=== PATIENT | female | born 1940 | race Caucasian/White ===

== ENCOUNTER 2017-09-25 03:47 | Inpatient (IN) | payer MEDICARE, MEDICAID, SELFPAY ==
[2017-09-25] VITALS (11 sets, daily range): BP systolic 115–143; BP diastolic 42–71; PULSE 85–115; RESP 16–33; TEMP 36.6–38.3; O2SAT 90–93; BMI 32.1
--- NOTE | 2017-09-25 | DI.US.S_ITS ---
PROCEDURE: US ABDOMEN COMPLETE INDICATIONS: RUQ pain TECHNIQUE: Real-time scanning was performed of the abdominal and retroperitoneal organs, with image documentation. COMPARISON: [facility], CT, PE STUDY (CTA CHEST), 02/27/2017, 14:45. [facility], CR, ABDOMEN ACUTE SERIES, 02/27/2017, 13:27. FINDINGS: Liver: The liver is diffusely echogenic, when compared to the right kidney which does result in difficulty evaluating the liver for subtle liver lesions. No obvious liver lesion is evident. The size of the liver is not well evaluated related to diffuse increased echogenicity of the liver. Gallbladder: The gallbladder is normal in size without gallbladder wall thickening, pericholecystic fluid, or cholelithiasis. Biliary ducts: Intrahepatic bile ducts are non-dilated. Extrahepatic bile duct caliber measures 6 mm. Normal is 6-7 mm or less in diameter, or 10 mm or less post-cholecystectomy. Pancreas: The pancreas is obscured by overlying bowel gas. Spleen: Spleen is normal in size and homogeneous in echotexture. Kidneys: Kidneys are normal in size and echotexture. Right kidney measures 11.7 cm long; left kidney measures 12.5 cm long. No hydronephrosis or nephrolithiasis. No solid masses. Aorta, iliac arteries, and inferior vena cava: Obscured by bowel gas Miscellaneous: No free abdominal fluid. IMPRESSION: 1. Prominent increased echogenicity of the liver is most likely related to hepatic steatosis. 2. No cholelithiasis. Dictated by: David Bills M.D. on 09/25/2017 at 13:27 Approved by: David Bills M.D. on 09/25/2017 at 13:29
--- NOTE | 2017-09-25 03:52 | DI.RAD.S_ITS ---
PROCEDURE: XR CHEST 1V INDICATIONS: COPD TECHNIQUE: One view of the chest was acquired. COMPARISON: [facility], , ABDOMEN ACUTE SERIES, 02/27/2017, 13:27. [facility], , CHEST 1 VIEW, 11/30/2016, 11:17. FINDINGS: Severely suboptimal evaluation due to difficulty with patient positioning Surgical changes and devices: None. Lungs and pleura: No pleural effusions or pneumothorax. Lung volumes are decreased. There are bibasilar patchy ill-defined opacities which appear probably unchanged since 02/27/17 Mediastinum: Mediastinal contours appear normal. Heart size is normal. Bones and chest wall: No suspicious bony lesions. Overlying soft tissues appear unremarkable. IMPRESSION: Low lung volumes with bibasilar atelectasis/scarring. No definite new focal consolidation or interval change since 02/27/17 although if there is persistent clinical concern, recommend repeat PA and lateral chest radiograph when clinically feasible, due to suboptimal evaluation described above. Dictated by: Joni Lozano M.D. on 09/25/2017 at 7:52 Approved by: Joni Lozano M.D. on 09/25/2017 at 7:54
--- NOTE | 2017-09-25 03:57 | ED.NAVMDI ---
HPI - Nausea/Vomiting/Diarrhea General Chief complaint: Nausea/Vomiting/Diarrhea Stated complaint: N/V Time Seen by Provider: 09/25/17 03:51 Source: EMS Mode of arrival: EMS Limitations: altered mental status (Dementia) History of Present Illness HPI Narrative: 76-year-old female brought by EMS from care facility for multiple episodes of nausea and vomiting since 10 o'clock last evening. Patient has dementia and is reported to be at baseline per EMS who received this information per the nursing care facility. No reports of blood in the vomit. Do report yellow bilious vomiting. No other symptoms reported by EMS Related Data Home Medications Medication Instructions Recorded Confirmed ACETAMINOPHEN 650 mg PO Q4HP PRN #0 11/30/16 09/25/17 bisacodyl [Fleet Laxative] 5 mg PO PRN PRN #0 11/30/16 09/25/17 calcium carbonate [Tums] 500 mg PO BIDP PRN #0 11/30/16 09/25/17 cholecalciferol (vitamin D3) 50,000 unit PO QWEEKSA #0 11/30/16 09/25/17 furosemide 20 mg PO QDAY #0 11/30/16 09/25/17 potassium chloride 20 meq PO QDAY #0 11/30/16 09/25/17 ziprasidone HCl [Geodon] 20 mg PO BID #0 11/30/16 09/25/17 ondansetron HCl 4 mg PO Q4HP PRN #0 02/27/17 09/25/17 sertraline 150 mg PO QDAY #0 02/27/17 09/25/17 ketoconazole [Nizoral] 1 applic TOPICAL WEEKLY 09/25/17 09/25/17 nystatin 1,000 g TOPICAL Q4HR 09/25/17 09/25/17 simvastatin 10 mg PO QPM 09/25/17 09/25/17 Previous Rx's Medication Instructions Recorded loratadine [Claritin] 10 mg PO QDAY #90 04/23/12 Allergies Allergy/AdvReac Type Severity Reaction Status Date / Time iodine Allergy Unknown Verified 09/25/17 05:06 Penicillins Allergy Unknown Verified 09/25/17 05:06 shellfish derived Allergy Unknown Verified 09/25/17 05:06 [SHELLFISH DERIVED] sulfamethoxazole Allergy Unknown Verified 09/25/17 05:06 [From Bactrim] trimethoprim [From Bactrim] Allergy Unknown Verified 09/25/17 05:06 Review of Systems Review of Systems unobtainable due to mental condition Exam Initial Vital Signs Initial Vital Signs: Vital Signs Temperature 98.5 F 09/25/17 04:04 Pulse Rate 101 H 09/25/17 04:04 Respiratory Rate 30 H 09/25/17 04:04 Blood Pressure 131/48 H 09/25/17 04:04 Pulse Oximetry 92 09/25/17 04:04 Const General: comfortable Orientation: awake Other: Patient does not follow commands Grinds her teeth which was reported as baseline HENMT Head: normal to inspection, normocephalic and atraumatic Eyes General: appearance normal, both eyes and all related structures Resp Effort & Inspection: no cough and grunting Other: Decreased breath sounds bilaterally Patient has a history of COPD on her records that came from the care facility Not on oxygen at baseline per any reports found Unsure if the decreased breath sounds is secondary to patient's respiratory effort versus aspiration versus COPD Cardio Rate: tachycardic Pulses: radial pulses present GI Inspection: normal to inspection and distended Palpation: soft, No firm and tender (Patient does answer yes when asked if her abdomen hurt with palpation) Skin Lesions: no lesions Rashes: no rashes Neuro Other: Patient does not answer questions Grains teeth that is baseline Did slightly squeeze with her right hand when asked otherwise did not follow commands Extrem Other: No gross deformities Psych Appearance: grossly normal Course Orders Ordered: ED Orders 09/25/17 03:52 XR chest 1V Stat 09/25/17 04:00 Basic Metabolic Panel Stat Complete Blood Count AUTO DIFF Stat Hepatic (Liver) Panel Stat Lipase Stat 09/25/17 04:25 CT kidney ureter bladder (KUB) Stat 09/25/17 04:30 Lactate (Lactic Acid) Stat 09/25/17 04:50 Blood Culture Stat 09/25/17 05:17 Consult to Physician Routine Sodium Chloride (Normal Saline 0.9%) 1,000 mls @ 500 mls/hr IV BOLUS ONE Stop: 09/25/17 05:51 Last Admin: 09/25/17 04:16 Dose: 500 mls/hr Levofloxacin (Levaquin) 750 mg in 150 mls @ 100 mls/hr IV NOW ONE Stop: 09/25/17 06:18 Sodium Chloride (Normal Saline 0.9%) 1,000 mls @ 500 mls/hr IV BOLUS ONE Stop: 09/25/17 06:57 Metronidazole (Flagyl) 500 mg in 100 mls @ 100 mls/hr IV NOW ONE Stop: 09/25/17 06:10 Sodium Chloride (Normal Saline 0.9%) 1,000 mls @ 125 mls/hr IV CONT MAYA Ondansetron HCl 4 mg/ Sodium (Chloride) 102 mls @ 204 mls/hr IV Q6HR PRN PRN Reason: Nausea And Vomiting Discontinued Medications Ondansetron HCl (Zofran) 4 mg IV NOW ONE Stop: 09/25/17 03:52 Last Admin: 09/25/17 04:16 Dose: 4 mg Vital Signs - 8 hr 09/25/17 04:04 09/25/17 04:29 09/25/17 05:10 Temperature 98.5 F Pulse Rate 101 H 103 H 107 H Respiratory Rate 30 H 33 H 30 H Blood Pressure 131/48 H Blood Pressure [Left Arm] 115/67 131/57 H Pulse Oximetry 92 91 92 MDM - Nausea/Vomiting/Diarrhea Medical Records Attestation: I reviewed the patient's medical records. Lab Data Attestation: I reviewed the patient's lab results. Result diagrams: 09/25/17 04:00 09/25/17 04:00 Lab Results 09/25/17 09/25/17 09/25/17 Range/Units 04:00 04:00 04:00 WBC 16.4 H (4.5-11.0) X10^3/uL RBC 5.97 H (4.0-5.2) X10^6/uL Hgb 16.6 H (12.0-16.0) g/dL Hct 50.0 H (36-46) % MCV 83.7 (80-100) fL MCH 27.8 (26-34) PG MCHC 33.2 (30-36) % RDW 14.3 (11.6-14.8) % Plt Count 235 (150-400) X10^3/uL Neut % (Auto) 93.8 H (50-75) % Lymph % (Auto) 4.2 L (25-40) % [place] % (Auto) 1.8 L (3-14) % Eos % (Auto) 0.1 L (2-4) % Baso % (Auto) 0.1 (0-2) % Neut # (Auto) 40433 H (3237-2548) /uL Sodium 143 (137-145) mmol/L Potassium 4.2 (3.4-5.1) mmol/L Chloride 99 (98-107) mmol/L Carbon Dioxide 24 (22-32) mmol/L BUN 13 (7-17) mg/dL Creatinine 0.70 (0.52-1.04) mg/dL Estimated GFR > 60.0 (>60) mL/min BUN/Creatinine Ratio 18.6 (6-22) Glucose 181 H (80-110) mg/dL Lactate (0.7-2.1) mmol/L Calcium 9.6 (8.4-10.2) mg/dL Total Bilirubin 0.9 (0.2-1.3) mg/dL Conjugated Bilirubin 0.0 (0.0-0.3) md/dL Unconjugated Bilirubin 0.5 (0.0-1.1) mg/dL AST 60 H (14-36) IU/L ALT 67 H (9-52) IU/L Alkaline Phosphatase 98 (38-126) U/L Total Protein 7.2 (6.3-8.2) g/dL Albumin 4.7 (3.5-5.0) g/dL Globulin 2.5 (1.7-4.1) g/dL Albumin/Globulin Ratio 1.9 (1.0-2.8) Lipase 97 (23-300) U/L 09/25/17 Range/Units 04:30 WBC (4.5-11.0) X10^3/uL RBC (4.0-5.2) X10^6/uL Hgb (12.0-16.0) g/dL Hct (36-46) % MCV (80-100) fL MCH (26-34) PG MCHC (30-36) % RDW (11.6-14.8) % Plt Count (150-400) X10^3/uL Neut % (Auto) (50-75) % Lymph % (Auto) (25-40) % [place] % (Auto) (3-14) % Eos % (Auto) (2-4) % Baso % (Auto) (0-2) % Neut # (Auto) (6254-8546) /uL Sodium (137-145) mmol/L Potassium (3.4-5.1) mmol/L Chloride (98-107) mmol/L Carbon Dioxide (22-32) mmol/L BUN (7-17) mg/dL Creatinine (0.52-1.04) mg/dL Estimated GFR (>60) mL/min BUN/Creatinine Ratio (6-22) Glucose (80-110) mg/dL Lactate 5.2 H (0.7-2.1) mmol/L Calcium (8.4-10.2) mg/dL Total Bilirubin (0.2-1.3) mg/dL Conjugated Bilirubin (0.0-0.3) md/dL Unconjugated Bilirubin (0.0-1.1) mg/dL AST (14-36) IU/L ALT (9-52) IU/L Alkaline Phosphatase (38-126) U/L Total Protein (6.3-8.2) g/dL Albumin (3.5-5.0) g/dL Globulin (1.7-4.1) g/dL Albumin/Globulin Ratio (1.0-2.8) Lipase (23-300) U/L Imaging Data Chest x-ray: Attestation: I personally reviewed and interpreted this imaging study as follows: My impression: Poor quality film secondary to lack of inspiratory status No focal consolidations however the is a poor quality film MDM Narrative Medical decision making narrative: Patient arrived at baseline mental status per EMS report which the received from the care facility. From all the information that we have received the patient is a full code. The care facility states that they do not have an advanced directive on file. Patient unable to provide history. Has not vomited since arrival to the emergency department. Does have an elevated white blood cell count with a left shift. Also has an elevated lactate. H&H is also high which is suspicious for dehydration. Was given 2 500 cc fluid boluses here in the emergency department and then started on normal saline IV. This was done secondary to her respiratory status. She does have a history of COPD. Was hypoxic to the low 90s and did drop to the mid 80s on room air. Was placed on nasal cannula which keeps her oxygen saturation greater than 90. Patient does have a slightly distended abdomen however it is soft. She does state that it was tender when you touch did. Patient was allergic to iodine so we were unable to give IV contrast. Patient also had nausea and vomiting which makes oral contrast administration unlikely to be successful. Did order a CT scan without contrast however when patient was placed flat on the CT scan table she became gasping for air and according nursing staff turned blue. She was sat up in these symptoms resolved. I do have some concern secondary to her elevated lactate and the nausea vomiting and her reports of abdominal pain of a potential intra abdominal source of her symptoms. I also have high concern secondary to her respiratory status and the vomiting that she has also aspirated. She is allergic to penicillin so Levaquin and Flagyl were ordered in the emergency department. Blood cultures were obtained. Held on obtaining any urine studies because of the high suspicion of either an intra-abdominal or respiratory source for her sepsis. I did discuss the case with Dr. Geiger the accepts patient for admission. Discharge Plan Departure Patient Disposition: Admitted As Inpatient Clinical Impression: Aspiration pneumonia, Nausea & vomiting, Sepsis, COPD (chronic obstructive pulmonary disease), Hypoxia
[2017-09-25 04:16] LABS: Add Manual Diff / Slide Review NO; BUN Creatinine Ratio 18.6 (6-22); Basophils Percent Auto 0.1 % (0-2); Blood Urea Nitrogen 13 mg/dL (7-17); Calcium 9.6 mg/dL (8.4-10.2); Carbon Dioxide 24 mmol/L (22-32); Chloride 99 mmol/L (98-107); Eosinophils Percent Auto 0.1 % (2-4); Estimated Glomerular Filt Rate > 60.0 mL/min (>60); Glucose 181 mg/dL (80-110); HEMOLYSIS < 15 (0-50); Hemoglobin 16.6 g/dL (12.0-16.0); Lymphocytes Percent Auto 4.2 % (25-40); Mean Corpuscular HGB Conc 33.2 % (30-36); Mean Corpuscular Hemoglobin 27.8 PG (26-34); Mean Corpuscular Volume 83.7 fL (80-100); Monocytes Percent Auto 1.8 % (3-14); Neutrophils Absolute Auto 15400 /uL (3000-5900); Neutrophils Percent Auto 93.8 % (50-75); Platelet Count 235 X10^3/uL (150-400); Potassium 4.2 mmol/L (3.4-5.1); Red Blood Cell Count 5.97 X10^6/uL (4.0-5.2); Red Cell Distribution Width 14.3 % (11.6-14.8); Sodium 143 mmol/L (137-145); White Blood Cell Count 16.4 X10^3/uL (4.5-11.0)
[2017-09-25] MEDS: ONDANSETRON 4 MG/2 ML INJ IV (04:16)
[2017-09-25] MEDS: SODIUM CHLORIDE 0.9% 1,000 ML 500 ML IV ×2 (04:16→07:32)
[2017-09-25 04:29] LABS: Alanine Aminotransferase 67 IU/L (9-52); Albumin 4.7 g/dL (3.5-5.0); Albumin Globulin Ratio 1.9 (1.0-2.8); Alkaline Phosphatase 98 U/L (38-126); Aspartate Aminotransferase 60 IU/L (14-36); Bilirubin Total 0.9 mg/dL (0.2-1.3); Bilirubin Unconjugated 0.5 mg/dL (0.0-1.1); Globulin 2.5 g/dL (1.7-4.1); HEMOLYSIS 20 (0-50); Lipase 97 U/L (23-300); Total Protein 7.2 g/dL (6.3-8.2)
--- NOTE | 2017-09-25 04:30 | PC.NURSE ---
Applied 2L O2 via NC for decrease in O2 saturation. Pt desaturated to 79%, 2L applied and pt saturations increased to 89-91%. Dr. Lazaro hebert.
[2017-09-25 04:48] LABS: Lactate (Lactic Acid) 5.2 mmol/L (0.7-2.1)
--- NOTE | 2017-09-25 04:52 | PC.NURSE ---
Pt transported to for CXR and CT scan. XR completed. When pt was transferred to CT table, pt began guppy breathing or heaving. Became distressed and cyanotic-- did not tolerate lying flat. Pt transferred back to [facility] and placed in high fowlers position where she recovered to baseline. Dr Willis notified of above.
[2017-09-25] MEDS: levoFLOXacin 750 MG/150 ML PIGGYBACK 100 MG IV (05:23)
[2017-09-25 08:36] LABS: Reflexed Lactate in 2 Hours Y
[2017-09-25] MEDS: metroNIDAZOLE 500 MG/100 ML PIGGYBACK 100 MG IV (09:10)
[2017-09-25 09:34] LABS: Lactate 2HR (Lactic Acid Rflx) 3.3 mmol/L (0.7-2.1)
[2017-09-25] MEDS: SODIUM CHLORIDE 0.9% 1,000 ML 125 ML IV ×2 (10:15→19:08)
--- NOTE | 2017-09-25 11:48 | PM.HP.1 ---
History of Present Illness Date Patient Seen: 09/25/17 Time Patient Seen: 11:15 Chief complaint: Aspiration Pneumonia/ Nausea, Vomiting/ Sepsis Narrative: 76-year-old female with dementia who was brought from care home facility to [facility] Emergency room yesterday for hypoxia after nausea and vomiting. Patient is a poor historian and is unable to provide much history. Based on the ER documentation, she had multiple episodes of nausea and vomiting since 10 o'clock the evening prior. She was found to be hypoxic required 2 L nasal cannula oxygen. She received symptomatic control with nausea vomiting. She has not had any recurrent vomiting since hospital admission. There was documentation of abdominal pain on the ER note. Patient denies ongoing abdominal pain. Patient History Medical History Anxiety (Acute) COPD (chronic obstructive pulmonary disease) (Acute) Chronic bronchitis (Acute) Dysphagia (Acute) Hyperlipemia (Acute) Hypertension (Acute) Major depressive disorder, single episode (Acute) Morbid obesity due to excess calories (Acute) Osteoarthritis (Acute) Other abnormalities of gait and mobility (Acute) Paranoid schizophrenia (Acute) Family & Social History Family History: Reviewed 09/25/17 by Subha Norwood MD Social History: household members none Prior Living Arrangements Assisted Living Safety & Behavioral: Suicidal Ideation Description None Suicide Plan Description No Plan Meds Home Medications Medication Instructions Recorded Confirmed Type loratadine [Claritin] 10 mg PO QDAY #90 04/23/12 09/25/17 Rx acetaminophen [Tylenol] 650 mg PO Q4H PRN #0 11/30/16 09/25/17 History bisacodyl [Fleet Laxative] 5 mg PO PRN PRN #0 11/30/16 09/25/17 History calcium carbonate [Tums] 500 mg PO BIDP PRN #0 11/30/16 09/25/17 History cholecalciferol (vitamin D3) 50,000 unit PO QWEEKSA #0 11/30/16 09/25/17 History furosemide 20 mg PO QDAY #0 11/30/16 09/25/17 History potassium chloride 20 meq PO QDAY #0 11/30/16 09/25/17 History ziprasidone HCl [Geodon] 20 mg PO BID #0 11/30/16 09/25/17 History ondansetron HCl 4 mg PO Q4HP PRN #0 02/27/17 09/25/17 History sertraline 150 mg PO QDAY #0 02/27/17 09/25/17 History Artificial Tears (PF) 1 drp OPHTHALMIC (EYE) TID 09/25/17 09/25/17 History ketoconazole [Nizoral] 1 applic TOPICAL WEEKLY 09/25/17 09/25/17 History nystatin 1,000 g TOPICAL Q4HR 09/25/17 09/25/17 History simvastatin 10 mg PO QPM 09/25/17 09/25/17 History Allergies Allergy/AdvReac Type Severity Reaction Status Date / Time hydrocodone Allergy Unknown Verified 09/25/17 07:49 iodine Allergy Unknown Verified 09/25/17 05:06 Penicillins Allergy Unknown Verified 09/25/17 05:06 shellfish derived Allergy Unknown Verified 09/25/17 05:06 [SHELLFISH DERIVED] sulfamethoxazole Allergy Unknown Verified 09/25/17 05:06 [From Bactrim] trimethoprim [From Bactrim] Allergy Unknown Verified 09/25/17 05:06 Review of Systems Review of Systems Complete review of system is unable to obtain due to patient's severe dementia. Exam Vital Signs (past 8 hours): Vital Signs - 8 hr 09/25/17 04:04 09/25/17 04:29 09/25/17 05:10 Temperature 98.5 F Pulse Rate 101 H 103 H 107 H Respiratory Rate 30 H 33 H 30 H Blood Pressure 131/48 H Blood Pressure [Left Arm] 115/67 131/57 H Pulse Oximetry 92 91 92 09/25/17 05:33 09/25/17 05:50 09/25/17 06:41 Temperature 100.9 F H 99.6 F Pulse Rate 115 H 113 H 92 H Respiratory Rate 25 H 27 H 21 Blood Pressure 128/71 H 133/66 H Blood Pressure [Left Arm] 128/71 H Pulse Oximetry 90 L 90 L 92 09/25/17 07:20 Temperature 99.5 F Pulse Rate 88 Respiratory Rate 17 Blood Pressure 116/42 L Blood Pressure [Left Arm] Pulse Oximetry 93 Pulse Oximetry 93 Oxygen Delivery Method Nasal Cannula Oxygen Flow Rate 2 Narrative Exam Narrative: GENERAL: Elderly woman in no acute distress. HEENT: Head normocephalic, atraumatic. Eyes pupils equal round NECK: Supple, no JVD, CHEST: Breath sounds equal bilaterally, no wheezes rales or rhonchi. CARDIAC: Regular rate and rhythm without murmurs, rubs or gallops. ABDOMEN: Soft, mildly distended, mild right upper quadrant and epigastric tenderness, no guarding or rebound. EXTREMITIES: no clubbing or edema, mild atrophy and bilateral leg muscles. NEUROLOGICAL: Alert and oriented to self only; she does move her extremities. SKIN: Warm, dry, no petechiae, no rashes or lesions. Objective Imaging Chest x-ray: Radiologist's impression: Labs Result Diagrams: 09/25/17 04:00 09/25/17 04:00 Labs: Laboratory Results - last 24 hr 09/25/17 09/25/17 09/25/17 04:00 04:00 04:00 WBC 16.4 H RBC 5.97 H Hgb 16.6 H Hct 50.0 H MCV 83.7 MCH 27.8 MCHC 33.2 RDW 14.3 Plt Count 235 Neut % (Auto) 93.8 H Lymph % (Auto) 4.2 L [place] % (Auto) 1.8 L Eos % (Auto) 0.1 L Baso % (Auto) 0.1 Neut # (Auto) 73202 H Sodium 143 Potassium 4.2 Chloride 99 Carbon Dioxide 24 BUN 13 Creatinine 0.70 Estimated GFR > 60.0 BUN/Creatinine Ratio 18.6 Glucose 181 H Lactate Calcium 9.6 Total Bilirubin 0.9 Conjugated Bilirubin 0.0 Unconjugated Bilirubin 0.5 AST 60 H ALT 67 H Alkaline Phosphatase 98 Total Protein 7.2 Albumin 4.7 Globulin 2.5 Albumin/Globulin Ratio 1.9 Lipase 97 Nasal Screen MRSA (PCR) 09/25/17 09/25/17 09/25/17 04:30 08:51 09:05 WBC RBC Hgb Hct MCV MCH MCHC RDW Plt Count Neut % (Auto) Lymph % (Auto) [place] % (Auto) Eos % (Auto) Baso % (Auto) Neut # (Auto) Sodium Potassium Chloride Carbon Dioxide BUN Creatinine Estimated GFR BUN/Creatinine Ratio Glucose Lactate 5.2 H 3.3 H Calcium Total Bilirubin Conjugated Bilirubin Unconjugated Bilirubin AST ALT Alkaline Phosphatase Total Protein Albumin Globulin Albumin/Globulin Ratio Lipase Nasal Screen MRSA (PCR) Negative for mrsa Assessment & Plan Plan: Assessment/Plan Narrative: 1. Nausea and vomiting: Etiology is unclear. She has not had any recurring nausea vomiting since hospital admission. Continue Zofran as needed. Patient does have right upper quadrant tenderness on physical exam. We will do right upper quadrant ultrasound to evaluate for possible cholelithiasis or cholecystitis. 2. Possible aspiration pneumonia: She was noted to be hypoxic and required 2 L of nasal cannula oxygen. Continue nasal cannula oxygen. Continue IV Levaquin for treating possible aspiration pneumonia 3. Acute hypoxic respiratory failure: Possibly secondary to possible aspiration pneumonia. 4. Dysphagia: She was on dysphagia diet prior to hospital admission. We will have speech evaluate for her swallowing. Likely restart dysphagia diet later today. 5. Severe dementia: Patient is close to her baseline mental status. Quality VTE Deep Vein Thrombosis/Pulmonary Embolism Present on Admission: No
--- NOTE | 2017-09-25 12:00 | P.HP_ITS ---
History of Present Illness Date Patient Seen: 09/25/17 Time Patient Seen: 11:15 Chief complaint: Aspiration Pneumonia/ Nausea, Vomiting/ Sepsis Narrative: 76-year-old female with dementia who was brought from assisted facility to [facility] Emergency room yesterday for hypoxia after nausea and vomiting. Patient is a poor historian and is unable to provide much history. Based on the ER documentation, she had multiple episodes of nausea and vomiting since 10 o'clock the evening prior. She was found to be hypoxic required 2 L nasal cannula oxygen. She received symptomatic control with nausea vomiting. She has not had any recurrent vomiting since hospital admission. There was documentation of abdominal pain on the ER note. Patient denies ongoing abdominal pain. Patient History Medical History Anxiety (Acute) COPD (chronic obstructive pulmonary disease) (Acute) Chronic bronchitis (Acute) Dysphagia (Acute) Hyperlipemia (Acute) Hypertension (Acute) Major depressive disorder, single episode (Acute) Morbid obesity due to excess calories (Acute) Osteoarthritis (Acute) Other abnormalities of gait and mobility (Acute) Paranoid schizophrenia (Acute) Family & Social History Family History: Reviewed 09/25/17 by Subha Norwood MD Social History: household members none Prior Living Arrangements Assisted Living Safety & Behavioral: Suicidal Ideation Description None Suicide Plan Description No Plan Meds Home Medications Medication Instructions Recorded Confirmed Type loratadine [Claritin] 10 mg PO QDAY #90 04/23/12 09/25/17 Rx acetaminophen [Tylenol] 650 mg PO Q4H PRN #0 11/30/16 09/25/17 History bisacodyl [Fleet Laxative] 5 mg PO PRN PRN #0 11/30/16 09/25/17 History calcium carbonate [Tums] 500 mg PO BIDP PRN #0 11/30/16 09/25/17 History cholecalciferol (vitamin D3) 50,000 unit PO QWEEKSA #0 11/30/16 09/25/17 History furosemide 20 mg PO QDAY #0 11/30/16 09/25/17 History potassium chloride 20 meq PO QDAY #0 11/30/16 09/25/17 History ziprasidone HCl [Geodon] 20 mg PO BID #0 11/30/16 09/25/17 History ondansetron HCl 4 mg PO Q4HP PRN #0 02/27/17 09/25/17 History sertraline 150 mg PO QDAY #0 02/27/17 09/25/17 History Artificial Tears (PF) 1 drp OPHTHALMIC (EYE) TID 09/25/17 09/25/17 History ketoconazole [Nizoral] 1 applic TOPICAL WEEKLY 09/25/17 09/25/17 History nystatin 1,000 g TOPICAL Q4HR 09/25/17 09/25/17 History simvastatin 10 mg PO QPM 09/25/17 09/25/17 History Allergies Allergy/AdvReac Type Severity Reaction Status Date / Time hydrocodone Allergy Unknown Verified 09/25/17 07:49 iodine Allergy Unknown Verified 09/25/17 05:06 Penicillins Allergy Unknown Verified 09/25/17 05:06 shellfish derived Allergy Unknown Verified 09/25/17 05:06 [SHELLFISH DERIVED] sulfamethoxazole Allergy Unknown Verified 09/25/17 05:06 [From Bactrim] trimethoprim [From Bactrim] Allergy Unknown Verified 09/25/17 05:06 Review of Systems Review of Systems Complete review of system is unable to obtain due to patient's severe dementia. Exam Vital Signs (past 8 hours): Vital Signs - 8 hr 3 09/25/17 04:04 09/25/17 04:29 09/25/17 05:10 Temperature 98.5 F Pulse Rate 101 H 103 H 107 H Respiratory Rate 30 H 33 H 30 H Blood Pressure 131/48 H Blood Pressure [Left Arm] 115/67 131/57 H Pulse Oximetry 92 91 92 3 09/25/17 05:33 09/25/17 05:50 09/25/17 06:41 Temperature 100.9 F H 99.6 F Pulse Rate 115 H 113 H 92 H Respiratory Rate 25 H 27 H 21 Blood Pressure 128/71 H 133/66 H Blood Pressure [Left Arm] 128/71 H Pulse Oximetry 90 L 90 L 92 3 09/25/17 07:20 Temperature 99.5 F Pulse Rate 88 Respiratory Rate 17 Blood Pressure 116/42 L Blood Pressure [Left Arm] Pulse Oximetry 93 Pulse Oximetry 93 Oxygen Delivery Method Nasal Cannula Oxygen Flow Rate 2 Narrative Exam Narrative: GENERAL: Elderly woman in no acute distress. HEENT: Head normocephalic, atraumatic. Eyes pupils equal round NECK: Supple, no JVD, CHEST: Breath sounds equal bilaterally, no wheezes rales or rhonchi. CARDIAC: Regular rate and rhythm without murmurs, rubs or gallops. ABDOMEN: Soft, mildly distended, mild right upper quadrant and epigastric tenderness, no guarding or rebound. EXTREMITIES: no clubbing or edema, mild atrophy and bilateral leg muscles. NEUROLOGICAL: Alert and oriented to self only; she does move her extremities. SKIN: Warm, dry, no petechiae, no rashes or lesions. Objective Imaging Chest x-ray: Radiologist's impression: Labs Result Diagrams: 09/25/17 04:00 09/25/17 04:00 Labs: Laboratory Results - last 24 hr 09/25/17 09/25/17 09/25/17 04:00 04:00 04:00 WBC 16.4 H RBC 5.97 H Hgb 16.6 H Hct 50.0 H MCV 83.7 MCH 27.8 MCHC 33.2 RDW 14.3 Plt Count 235 Neut % (Auto) 93.8 H Lymph % (Auto) 4.2 L [place] % (Auto) 1.8 L Eos % (Auto) 0.1 L Baso % (Auto) 0.1 Neut # (Auto) 55493 H Sodium 143 Potassium 4.2 Chloride 99 Carbon Dioxide 24 BUN 13 Creatinine 0.70 Estimated GFR > 60.0 BUN/Creatinine Ratio 18.6 Glucose 181 H Lactate Calcium 9.6 Total Bilirubin 0.9 Conjugated Bilirubin 0.0 Unconjugated Bilirubin 0.5 AST 60 H ALT 67 H Alkaline Phosphatase 98 Total Protein 7.2 Albumin 4.7 Globulin 2.5 Albumin/Globulin Ratio 1.9 Lipase 97 Nasal Screen MRSA (PCR) 09/25/17 09/25/17 09/25/17 04:30 08:51 09:05 WBC RBC Hgb Hct MCV MCH MCHC RDW Plt Count Neut % (Auto) Lymph % (Auto) [place] % (Auto) Eos % (Auto) Baso % (Auto) Neut # (Auto) Sodium Potassium Chloride Carbon Dioxide BUN Creatinine Estimated GFR BUN/Creatinine Ratio Glucose Lactate 5.2 H 3.3 H Calcium Total Bilirubin Conjugated Bilirubin Unconjugated Bilirubin AST ALT Alkaline Phosphatase Total Protein Albumin Globulin Albumin/Globulin Ratio Lipase Nasal Screen MRSA (PCR) Negative for mrsa Assessment & Plan Plan: Assessment/Plan Narrative: 1. Nausea and vomiting: Etiology is unclear. She has not had any recurring nausea vomiting since hospital admission. Continue Zofran as needed. Patient does have right upper quadrant tenderness on physical exam. We will do right upper quadrant ultrasound to evaluate for possible cholelithiasis or cholecystitis. 2. Possible aspiration pneumonia: She was noted to be hypoxic and required 2 L of nasal cannula oxygen. Continue nasal cannula oxygen. Continue IV Levaquin for treating possible aspiration pneumonia 3. Acute hypoxic respiratory failure: Possibly secondary to possible aspiration pneumonia. 4. Dysphagia: She was on dysphagia diet prior to hospital admission. We will have speech evaluate for her swallowing. Likely restart dysphagia diet later today. 5. Severe dementia: Patient is close to her baseline mental status. Quality VTE Deep Vein Thrombosis/Pulmonary Embolism Present on Admission: No
--- NOTE | 2017-09-25 13:37 | CM.DANOTE ---
DCP/Assessment: Reviewed chart. Patient is a 76yr old female admitted to [facility] with [facility]. PCP is Dr. Baker. Primary payor is 1)Medicare 2)Medicaid. Pt. is a current resident at [facility]. Assigned state guardian is Colleen Tamez ph# [phone]. Spoke briefly with RN/Joni today re: status. CUSTOMER ACCOUNT COORDINATOR met with patient and asked her if she was from [facility]. Patient difficult to understand but reports yes. RN asking about patient's advanced directives and code status? Instructed nrsg to call [facility] and or guardian. If RN unable to obtain, contact CM team. Anticipate that patient will return to [facility] when medically stable. Unable to call today due to staffing. Contact at [facility] is Garrett ph# [phone]. In addition, guardian/Colleen Tamez should be notified prior to patient's discharge. CUSTOMER ACCOUNT COORDINATOR will pass on to oncoming CM staff. P: [facility] when stable. DEBRA Quinn
[2017-09-25] MEDS: NYSTATIN POWDER 15GM 1 APPLIC TOP ×3 (14:06→21:44)
[2017-09-25] MEDS: POLYVINYL ALCOHOL DROPS 1 DROPS EYE-BOTH ×2 (14:06→21:44)
--- NOTE | 2017-09-25 16:37 | ST.IPIE ---
Visit Care Team Role Provider Type Mary Baker MD Family Provider Physician Primary Care Provider Specialty: Medical Address: [address], [address] Email: Dalton Willis DO Emergency Provider Physician Specialty: Emergency Medicine Address: [address] [place] [address], [address] Email: Marques Geiger MD Admit Provider Physician Attending Provider Other Providers Specialty: Internal Medicine Address: [address] [place] [address], [id number] Email: Past Medical History (Last Reviewed 09/25/17 @ 11:51 by Subha Norwood MD) Anxiety (Acute Medical) COPD (chronic obstructive pulmonary disease) (Acute Medical) Chronic bronchitis (Acute Medical) Dysphagia (Acute Medical) Hyperlipemia (Acute Medical) Hypertension (Acute Medical) Major depressive disorder, single episode (Acute Medical) Morbid obesity due to excess calories (Acute Medical) Osteoarthritis (Acute Medical) Other abnormalities of gait and mobility (Acute Medical) Paranoid schizophrenia (Acute Medical) ST IP Initial Evaulation Report TEACHER DANCING Clinical Swallow Evaluation Start: 09/25/17 15:57 Freq: Status: Active Protocol: Document 09/25/17 15:58 CARL (Rec: 09/25/17 16:36 CARL [id number]) Clinical Swallow Evaluation Session Time Visit Start Time 14:00 Visit Stop Time 14:30 Total Visit Minutes 30 Visit Information Visit Number [address] Geiger Reason for Referral Aspiration of emesis; baseline of modified diet/liquids Setting Assessment Location Acute Care Visit Type Note Type Initial Evaluation Next Note Type Next Note Type Treatment Note Patient Information Identification Type Name History 76-year-old female with dementia who was brought from [facility] to [facility] Emergency room yesterday for hypoxia after nausea and vomiting and abdominal pain. Possible aspiration pneumonia from emesis. Pt was noted to be hypoxic and requiring 2 L of nasal cannula oxygen. IV Levaquin treating possible aspiration pneumonia. Chest X-ray Impression : Low lung volumes with bibasilar atelectasis/scarring . No definite new focal consolidation or interval change since 02/27/17 although if there is persistent clinical concern, recommend repeat PA and lateral chest radiograph when clinically feasible, due to suboptimal evaluation described above. The pt's baseline diet at [facility] is pureed texture, honey- thick liquid, meds crushed in carrier, 1:1 feeding assistance and supervision d/t severe dementia. Subjective Observations The pt was seen immediately following abdominal ultrasound . She was lying in bed with eyes closed and mouth open with tongue in constant motion around her mouth. She aroused to verbal stimuli and greeted this TEACHER DANCING upon introduction. She was agreeable to P.O. trials and able to follow a few basic oral motor instructions with demonstration. She did not communicate beyond yes/no and ok. Evaluation Liquids Trialed Mars Honey Solids Trialed Puree Administration Type Tea Spoon Dependent Feeding Oral Impairment Severely Impaired Oral Strategies Upright at 90 degrees Controlled Bite/Sip Size Dementia Strategies Oral Phase Comments Pt is edentulous. Lingual ROM is WFL. Strength and coordination of tongue, lips and cheeks is reduced. When offered trials, the pt consistently opened her mouth for acceptance but required intermittent verbal cues to close lips around the spoon. The pt constantly moves her tongue from side to side in her oral cavity, reducing ability to form and control a bolus. Boluses were observed to exit the oral cavity posteriorly prior to initiation of swallow (3-5 sec ), significantly increasing her risk of aspiration. Minimal anterior oral spillage of liquids observed, managed primarily by the pt licking her lips. No oral residue was observed with solids or liquids. Pharyngeal Impairment Severely Impaired Pharyngeal Phase Strategies Sitting Upright (90 deg) Chin Tuck Small Bites and Sips Pharyngeal Phase Comments No overt s/sx of aspiration were observed with all trials. Hyolaryngeal elevation and excursion is reduced. Pharyngeal swallow of NTL was audible, indicating reduced coordination and increased risk of aspiration. Swallow appeared better coordinated with HTL. To reduce posterior spillage from oral cavity and increase airway protection, chin tuck swallow was attempted. The pt appeared familiar with the task and upon verbal prompt lowered her chin minimally, indicating possible stimulability to training of this strategy. Findings Rehabilitation Potential Fair Impressions The pt presents with moderate- severe oropharyngeal dysphagia secondary to dementia and reduced strength and coordination of swallow musculature. She was able to follow a few simple one-step instructions including attempted chin tuck with swallow, which may allow her to decrease her risk of aspiration. Diet Recommendations Liquids Order Honey Diet Order Dysphagia Blenderized Medication Recommendations Crushed Additional Dietary Needs Controlled Sips No Straws 1:1 Supervision 1:1 Assistance Reminders to Use Strategies Aspiration Precautions Recommended Precautions Upright at 90 Degrees Small Bites/Sips Chin Tuck Check for Pocketing Liquids from Spoon Treatment Plan Placement Recommendations after [facility] Discharge Appropriate for Therapy Yes Therapy Recommendations Ongoing assessment of swallow safety and diet tolerance; training of pt/caregivers in use of chin tuck to reduce premature posterior oral spillage and protect the airway. Dysphagia Goals Pt will tolerate least restrictive diet to meet her nutrition and hydration needs. Pt will follow safe swallow strategies with verbal cuing as needed to reduce risk of aspiration.
[2017-09-25] MEDS: SIMVASTATIN 10 MG TABLET PO (17:17)
--- NOTE | 2017-09-25 22:25 | PC.NURSE ---
Patient minimal verbal responses, able to answer simple questions. Reported tardive dyskenesia- moving arms, and chewing movments. Denies pain except does cry out when repositioned. Needed to be fed dysphagia pureed dinner. Incontinent of stool and urine. Remains on O2 2;l/m pm- sats 93-95.
[2017-09-26] VITALS (8 sets, daily range): BP systolic 102–151; BP diastolic 44–66; PULSE 79–85; RESP 16–24; TEMP 36.5–37.2; O2SAT 80–97; BMI 32.1
[2017-09-26] MEDS: NYSTATIN POWDER 15GM 1 APPLIC TOP ×6 (01:00→21:19)
[2017-09-26] MEDS: ACETAMINOPHEN 325 MG TABLET 650 MG PO ×2 (01:16→17:15)
[2017-09-26] MEDS: SODIUM CHLORIDE 0.9% 1,000 ML 125 ML IV (03:30)
[2017-09-26 05:12] LABS: Alanine Aminotransferase 55 IU/L (9-52); Alkaline Phosphatase 56 U/L (38-126); Aspartate Aminotransferase 38 IU/L (14-36); BUN Creatinine Ratio 25.7 (6-22); Bilirubin Total 0.8 mg/dL (0.2-1.3); Blood Urea Nitrogen 18 mg/dL (7-17); Calcium 8.3 mg/dL (8.4-10.2); Carbon Dioxide 27 mmol/L (22-32); Chloride 107 mmol/L (98-107); Estimated Glomerular Filt Rate > 60.0 mL/min (>60); Glucose 146 mg/dL (80-110); HEMOLYSIS < 15 (0-50); Lipase 14 U/L (23-300); Potassium 3.7 mmol/L (3.4-5.1); Sodium 145 mmol/L (137-145)
[2017-09-26 05:13] LABS: Hematocrit 39.5 % (36-46); Mean Corpuscular Hemoglobin 27.7 PG (26-34); Mean Corpuscular Volume 83.9 fL (80-100); Platelet Count 189 X10^3/uL (150-400); Red Blood Cell Count 4.71 X10^6/uL (4.0-5.2); Red Cell Distribution Width 14.4 % (11.6-14.8); White Blood Cell Count 21.7 X10^3/uL (4.5-11.0)
[2017-09-26 05:14] LABS: Add Manual Diff / Slide Review YES
[2017-09-26] MEDS: levoFLOXacin 750 MG/150 ML PIGGYBACK 100 MG IV (06:01)
[2017-09-26 06:40] LABS: Anisocytosis 1+
[2017-09-26] MEDS: ONDANSETRON 4 MG/2 ML INJ IV (08:07)
--- NOTE | 2017-09-26 08:42 | CM.DPC ---
Addendum entered by DEBRA Arnold 09/26/17 12:06: ADD: Per MD, pt not stable for d/c yet today but making progress and still on Oxygen. Per RN, likely will do a room air test on pt tomorrow to determine if she will need oxygen at d/c. KATJA called pt's legal guardian Colleen Tamez ([phone]) and updated her on pt status and possible need for Oxygen at d/c and [facility] review of the pt and acceptance back. Colleen Tamez stated that she just completed a new POLST form for pt's DNR at [facility] and MD to sign today at [facility]. SW provided the pt's Medicare Rights to pt's guardian and she acknowledged understanding and gave verbal signature on Medicare Message. Guardian's preference is return to [facility] at d/c. KATJA called Alexa at [facility] and updated on pt status and possible need for oxygen at d/c pending room air trial tomorrow. Alexa requested orders for oxygen faxed krystian if pt will need Oxygen so that she can get it set up with [facility] [place]. Plan: SW to follow closely for likely pt return to [facility] and determine if pt will need oxygen at d/c pending trial tomorrow towards letting [facility] know krystian so that they can get it set up with [facility] [place]. SW to keep Guardian Colleen Tamez updated on pt discharge. DEBRA Arnold Original Note: DCP Cont: KATJA called Alexa at [facility] and confirmed that the pt is a resident at their facility and Alexa requested clinicals to review towards possible return at d/c. KATHYA Montiel kindly faxed requested clinicals to review to Alexa at [facility]. Plan: KATJA to follow closely for [place] review of pt's clinicals towards possible return at d/c and ongoing coordination with [facility] and pt's guardian Colleen Tamez on d/c planning closer to discharge. DEBRA Arnold
[2017-09-26] MEDS: SERTRALINE 50 MG TABLET 150 MG PO (09:13)
[2017-09-26] MEDS: POLYVINYL ALCOHOL DROPS 1 DROPS EYE-BOTH ×3 (09:13→21:18)
[2017-09-26] MEDS: LORATADINE 10 MG TABLET PO (09:14)
--- NOTE | 2017-09-26 10:00 | PM.PN.1 ---
Subjective Date Patient Seen: 09/26/17 Time Patient Seen: 09:15 Interval history: Patient no longer has nausea or vomiting. She is currently sitting in the chair having her breakfast. Exam Vital Signs (past 8 hours): Vital Signs - 8 hr 09/26/17 05:05 09/26/17 05:49 09/26/17 07:34 Temperature 98.2 F 98.3 F Pulse Rate 80 84 Respiratory Rate 24 19 Blood Pressure 112/57 L 121/63 H Pulse Oximetry 80 L 96 94 Pulse Oximetry 94 Fraction of Inspired Oxygen 28 Oxygen Delivery Method Nasal Cannula Oxygen Flow Rate 2 Narrative Exam Narrative: General: Obese elderly woman in no acute distress Lungs: Fine crackles at the right lower lung field, otherwise clear to auscultation, no wheezing appreciated Heart:Regular rate and rhythm without murmurs, rubs or gallops. ABDOMEN: Soft, mildly distended, nontender, no guarding or rebound. EXTREMITIES: no clubbing or edema, mild atrophy and bilateral leg muscles. NEUROLOGICAL: Alert and oriented to self only; she does move her extremities. SKIN: Warm, dry, no petechiae, no rashes or lesions. Objective Labs Result Diagrams: 09/26/17 04:50 09/26/17 04:50 Labs: Laboratory Results - last 24 hr 09/25/17 09/26/17 09/26/17 08:51 04:50 04:50 WBC 21.7 H RBC 4.71 Hgb 13.0 Hct 39.5 MCV 83.9 MCH 27.7 MCHC 33.0 RDW 14.4 Plt Count 189 Neut % (Auto) Not Reportable Lymph % (Auto) Not Reportable [place] % (Auto) Not Reportable Eos % (Auto) Not Reportable Baso % (Auto) Not Reportable Seg Neutrophils % 82.0 H Band Neutrophils % 9.0 H Lymphocytes % (Manual) 6.0 L Monocytes % (Manual) 2.0 Myelocytes % 1.0 H RBC Morphology Not Reportable Anisocytosis 1+ H Sodium 145 Potassium 3.7 Chloride 107 Carbon Dioxide 27 BUN 18 H Creatinine 0.70 Estimated GFR > 60.0 BUN/Creatinine Ratio 25.7 H Glucose 146 H Calcium 8.3 L Total Bilirubin 0.8 AST 38 H ALT 55 H Alkaline Phosphatase 56 Lipase 14 L D Nasal Screen MRSA (PCR) Negative for mrsa Assessment & Plan Plan: Assessment/Plan Narrative: 1. Nausea and vomiting: Etiology is unclear. She has not had any recurring nausea vomiting since hospital admission. Continue Zofran as needed. Right upper quadrant ultrasound did not reveal signs of cholelithiasis or cholecystitis. 2. Aspiration pneumonia: She was noted to be hypoxic and required 2 L of nasal cannula oxygen. Continue nasal cannula oxygen. Continue IV Levaquin for treating possible aspiration pneumonia 3. Acute hypoxic respiratory failure: Possibly secondary to possible aspiration pneumonia. We will treat underlying cause 4. Dysphagia: She is followed by speech pathologist. She is currently on dysphagia diet with pureed solid and nectar thick liquid 5. Severe dementia: Patient is close to her baseline mental status. 6. Disposition: Discharge back to correction facility when she is medically more stable. Quality VTE Deep Vein Thrombosis/Pulmonary Embolism Present on Admission: No
[2017-09-26] MEDS: ZIPRASIDONE 20 MG 1 EACH PO ×2 (12:21→21:19)
--- NOTE | 2017-09-26 13:33 | DIET.PN ---
Additional consult received for pt today. Pt was assessed following initial consult request (received yesterday). Today's consult was for aspiration risk, but OCEAN FORWARDER evaluated this pt yesterday and her recommendations (dysphagia pureed / HTL) are recorded in pt's EMR and diet order, and are being followed. No further aspiration-related interventions indicated from dietitians at this time. Minimal data for pt's intake so far; however, we will monitor and supplement appropriately if intake begins to decrease below estimated needs. Debra Kidd, college intern Gemma Liz RDN
--- NOTE | 2017-09-26 16:46 | ST.IPTN ---
TUBE ROOM CASHIER Treatment Note TUBE ROOM CASHIER Treatment Note Start: 09/25/17 15:57 Freq: Status: Active Protocol: Document 09/26/17 16:35 CARL (Rec: 09/26/17 16:43 CARL [id number]) Speech Pathology Treatment Note Session Time Visit Start Time 09:40 Visit Stop Time 10:05 Total Visit Minutes 25 Setting Treatment Setting Acute Care Visit Type Note Type Treatment Note Next Note Type Next Note Type Treatment Note Subjective Observations/Patient Presentation Pt was sitting up in chair. She had finished eating breakfast but was agreeable to a few more bites/sips. Per QUEBRACHO TANNER, pt exhibited no overt s/ sx of aspiration with breakfast, required verbal and tactile cues for chin tuck. Chief Complaint(s) Swallowing Objective Short Term Goals Pt will tolerate least restrictive diet to meet her nutrition and hydration needs. Pt will use safe swallow strategies with cuing as necessary. Treatment Activities P.O. trials of puree texture, HTL. Assessment and pt training of safe swallow strategies including chin tuck and looking at each bolus presentation prior to intake. Pt did not respond to chin tuck prompts. She did look at each bolus when instructed to. Assessment Patient Response to Treatment Good Rehab Potential Fair Assessment of Improvement No overt s/sx of aspiration with trials of puree texture and HTL from spoon. Attempted cup sip but pt had difficulty wrapping lips around cup. Continue liquids by tsp. The pt was not responsive to verbal or tactile prompts for chin tuck with this TUBE ROOM CASHIER. However, she was in bolt upright position, which assisted in reducing premature posterior spillage. Pt continues with dyskinetic lingual movements impacting her ability to prepare and control boluses. Good oral clearance. Pt appears to be at baseline with swallow function. Plan Comment F/u x1. Anticipate dc from ST services in 1-2 visits. Visit Care Team Role Provider Type Mary Baker MD Family Provider Physician Primary Care Provider Address: [address], [address] Dalton Willis DO Emergency Provider Physician Address: [address] [place] [address], [address] Marques Geiger MD Admit Provider Physician Attending Provider Other Providers Address: [address] [place] [address], [address] Please Sign and Return: I have reviewed this Plan of Care and certify that the skilled therapy services above are required to meet the patient?s needs. Physician Signature Date Printed Name and Credentials Clinical Instructor Signature Printed Name and Credentials
[2017-09-26] MEDS: SIMVASTATIN 10 MG TABLET PO (17:16)
[2017-09-26] MEDS: SODIUM CHLORIDE 0.9% FLUSH 10 ML IV (21:20)
[2017-09-27] VITALS (7 sets, daily range): BP systolic 96–115; BP diastolic 44–63; PULSE 76–81; RESP 18–23; TEMP 36.3–36.9; O2SAT 93–96
[2017-09-27] MEDS: SODIUM CHLORIDE 0.9% FLUSH 10 ML IV ×4 (02:22→21:00)
[2017-09-27] MEDS: ONDANSETRON 4 MG/2 ML INJ IV (02:22)
[2017-09-27] MEDS: levoFLOXacin 750 MG/150 ML PIGGYBACK 100 MG IV (05:51)
[2017-09-27] MEDS: NYSTATIN POWDER 15GM 1 APPLIC TOP ×5 (05:51→20:59)
[2017-09-27] MEDS: ZIPRASIDONE 20 MG 1 EACH PO ×2 (09:59→20:58)
[2017-09-27] MEDS: SERTRALINE 50 MG TABLET 150 MG PO (09:59)
[2017-09-27] MEDS: LORATADINE 10 MG TABLET PO (10:00)
[2017-09-27] MEDS: POLYVINYL ALCOHOL DROPS 1 DROPS EYE-BOTH ×3 (10:00→20:58)
--- NOTE | 2017-09-27 10:21 | P.PN_ITS ---
Subjective Date Patient Seen: 09/27/17 Time Patient Seen: 09:30 Interval history: Patient is clinically stable. She still requires nasal cannula oxygen. Exam Vital Signs (past 8 hours): Vital Signs - 8 hr 3 09/27/17 04:57 09/27/17 07:48 Temperature 98.3 F 98 F Pulse Rate 76 76 Respiratory Rate 20 22 Blood Pressure 113/63 96/61 Pulse Oximetry 96 94 Pulse Oximetry 94 Fraction of Inspired Oxygen 28 Oxygen Delivery Method Nasal Cannula Oxygen Flow Rate 2 Narrative Exam Narrative: General: Obese elderly woman in no acute distress Lungs: Fine crackles at bilateral lower lung roman, otherwise clear to auscultation, no wheezing appreciated Heart:Regular rate and rhythm without murmurs, rubs or gallops. ABDOMEN: Soft, mildly distended, nontender, no guarding or rebound. EXTREMITIES: no clubbing or edema, mild atrophy and bilateral leg muscles. NEUROLOGICAL: Alert and oriented to self only; she does move her extremities. SKIN: Warm, dry, no petechiae, no rashes or lesions. Objective Labs Result Diagrams: 09/26/17 04:50 09/26/17 04:50 Assessment & Plan Plan: Assessment/Plan Narrative: 1. Nausea and vomiting: Possible viral gastroenteritis. Her nausea vomiting have resolved. She has not had any recurring nausea vomiting since hospital admission. Continue Zofran as needed. Right upper quadrant ultrasound did not reveal signs of cholelithiasis or cholecystitis. 2. Aspiration pneumonia: She was noted to be hypoxic and required 2 L of nasal cannula oxygen. Continue nasal cannula oxygen. Continue IV Levaquin for treating possible aspiration pneumonia 3. Acute hypoxic respiratory failure: Possibly secondary to possible aspiration pneumonia. We will treat underlying cause 4. Acute pulmonary edema: She was found to have crackles on bilateral lower lung roman. She was on oral furosemide prior to hospital admission. We will give her 1 time dose of IV furosemide 20 mg today. Restart oral furosemide per outpatient dosing. Restart potassium supplement as well. Recheck her labs in the morning. 5. Dysphagia: She is followed by speech pathologist. She is currently on dysphagia diet with pureed solid and nectar thick liquid 5. Severe dementia: Patient is close to her baseline mental status. 6. Disposition: Discharge back to [facility] possibly tomorrow Quality VTE Deep Vein Thrombosis/Pulmonary Embolism Present on Admission: No
[2017-09-27] MEDS: FUROSEMIDE 20 MG TABLET PO (10:31)
[2017-09-27] MEDS: FUROSEMIDE 20 MG/2 ML VIAL IV (10:31)
[2017-09-27] MEDS: POTASSIUM CHLORIDE 20 MEQ TAB PO (10:31)
--- NOTE | 2017-09-27 14:52 | ST.IPTN ---
DIRECTOR SHIP Treatment Note DIRECTOR SHIP Treatment Note Start: 09/25/17 15:57 Freq: Status: Active Protocol: Document 09/27/17 14:38 [facility] (Rec: 09/27/17 14:52 [facility] [id number]) Speech Pathology Treatment Note Session Time Visit Start Time 09:15 Visit Stop Time 09:30 Total Visit Minutes 15 Visit Information Visit Number 2 Setting Treatment Setting Acute Care Visit Type Note Type Treatment Note Next Note Type Next Note Type Treatment Note Subjective Observations/Patient Presentation Pt was seen immediately after being transferred to chair. Pt maintained closed eyes throughout the session with exception of looking at each bolus presentation on command. She responded to the DIRECTOR SHIP's greeting and answered some yes /no questions; was otherwise not verbal. Chief Complaint(s) Swallowing Objective Short Term Goals Pt will tolerate least restrictive diet to meet her nutrition and hydration needs. Pt will use safe swallow strategies with cuing as necessary. Treatment Activities Pt tolerated puree texture and HTL with no overt s/sx of aspiration. She followed verbal and tactile prompts to tuck chin with minimal downward movement x2 over course of trials. Pt continues with poor oral control of bolus secondary to constant lingual movement. Continues with early spillage to pharynx requiring mandatory bolt upright position to reduce risk of aspiration. The pt was provided 1:1 feeding assistance and required occasional verbal prompts to close lips around spoon for intake. Assessment Patient Response to Treatment Good Rehab Potential Fair Assessment of Improvement Pt tolerating puree diet, HTL with no overt s/sx of aspiration. Remains at risk of aspiration secondary to dementia, poor oral motor control resulting in early spillage of bolus to pharynx, and delayed swallow trigger. Pt requires 1:1 feeding assistance and verbal/tactile prompts occasionally for oral acceptance and consistently for use of chin tuck and visualization of bolus presentation. Pt appears to be at her baseline swallow function. Plan Therapeutic Contents Swallowing/Feeding Provided Patient/Caregiver Instruction Plan of Care Questions/Concerns Comment Consultation w/ Nsg & MAKING LINE WORKER Visit Care Team Role Provider Type Mary Baker MD Family Provider Physician Primary Care Provider Address: [address], [address] Dalton Willis DO Emergency Provider Physician Address: [address] [place] [address], [id number] Marques Geiger MD Admit Provider Physician Attending Provider Other Providers Address: [address] [place] [address], [place], [id number] Please Sign and Return: I have reviewed this Plan of Care and certify that the skilled therapy services above are required to meet the patient?s needs. Physician Signature Date Printed Name and Credentials Clinical Instructor Signature Printed Name and Credentials
--- NOTE | 2017-09-27 15:50 | PC.NURSE ---
1530- Pt discharged to home with his . Pt will have home health visiting at home. Pt is alert oriented and cooperative with care. Discharge instruction given to patient and . IV helplock removed. Pt verbalizes understanding of discharge plan. Stable at the time of discharge.
[2017-09-27] MEDS: SIMVASTATIN 10 MG TABLET PO (17:34)
--- NOTE | 2017-09-27 21:41 | PC.NURSE ---
2106- Pt had a significant bradycardic event with a 5 second pause. She then had some escape beats and returned to normal sinus rhythm. Pt did not have complete lose of vital signs and responded to a vigorous sternal rub. Pt unable to convey if she had chest pain or if she felt anything prior to the event. Pt was taking her 9pm pills at the time. Event reported to Dr. Norwood no orders rec. Pt is full code.
[2017-09-28] VITALS (8 sets, daily range): BP systolic 114–142; BP diastolic 39–73; PULSE 61–79; RESP 16–26; TEMP 36.4–37.3; O2SAT 93–96
[2017-09-28] MEDS: NYSTATIN POWDER 15GM 1 APPLIC TOP ×6 (01:10→20:25)
[2017-09-28 05:48] LABS: Add Manual Diff / Slide Review NO; Basophils Percent Auto 0.1 % (0-2); Eosinophils Percent Auto 0.1 % (2-4); Hematocrit 37.7 % (36-46); Hemoglobin 12.5 g/dL (12.0-16.0); Lymphocytes Percent Auto 6.3 % (25-40); Mean Corpuscular HGB Conc 33.2 % (30-36); Mean Corpuscular Hemoglobin 27.2 PG (26-34); Mean Corpuscular Volume 82.1 fL (80-100); Monocytes Percent Auto 7.3 % (3-14); Neutrophils Absolute Auto 11500 /uL (3000-5900); Neutrophils Percent Auto 86.2 % (50-75); Platelet Count 189 X10^3/uL (150-400); Red Blood Cell Count 4.59 X10^6/uL (4.0-5.2); Red Cell Distribution Width 15.1 % (11.6-14.8); White Blood Cell Count 13.4 X10^3/uL (4.5-11.0)
[2017-09-28 05:57] LABS: Blood Urea Nitrogen 24 mg/dL (7-17); Carbon Dioxide 32 mmol/L (22-32); Chloride 104 mmol/L (98-107); Estimated Glomerular Filt Rate > 60.0 mL/min (>60); Glucose 151 mg/dL (80-110); HEMOLYSIS < 15 (0-50); Potassium 3.4 mmol/L (3.4-5.1); Sodium 147 mmol/L (137-145)
[2017-09-28] MEDS: levoFLOXacin 750 MG/150 ML PIGGYBACK 100 MG IV (06:35)
[2017-09-28] MEDS: SODIUM CHLORIDE 0.9% 250 ML 21 ML IV (06:36)
[2017-09-28] MEDS: SODIUM CHLORIDE 0.9% FLUSH 10 ML IV ×2 (06:36→20:26)
[2017-09-28] MEDS: FUROSEMIDE 20 MG TABLET PO (10:05)
[2017-09-28] MEDS: LORATADINE 10 MG TABLET PO (10:05)
[2017-09-28] MEDS: ZIPRASIDONE 20 MG 1 EACH PO (10:06)
[2017-09-28] MEDS: POLYVINYL ALCOHOL DROPS 1 DROPS EYE-BOTH ×3 (10:06→20:26)
[2017-09-28] MEDS: POTASSIUM CHLORIDE 20 MEQ TAB PO (10:06)
[2017-09-28] MEDS: SERTRALINE 50 MG TABLET 150 MG PO (10:06)
[2017-09-28 10:47] LABS: Acinetobacter baumannii Not Detected (Not Detect); Enterococcus species Not Detected (Not Detect); Listeria monocytogenes Not Detected (Not Detect); Staphylococcus species Not Detected (Not Detect); Streptococcus agalactiae (Gr B Not Detected (Not Detect); Streptococcus pneumonia Not Detected (Not Detect); Streptococcus pyogenes (Gr A) Not Detected (Not Detect); Streptococcus species Not Detected (Not Detect)
[2017-09-28 10:48] LABS: Candida albicans Not Detected (Not Detect); Candida glabrata Not Detected (Not Detect); Candida krusei Not Detected (Not Detect); Candida parapsilosis Not Detected (Not Detect); Candida tropicalis Not Detected (Not Detect); E. coli Detected (Not Detect); Enterobacter cloacae complex Not Detected (Not Detect); Enterobacteriaceae species Detected (Not Detect); Haemophilus influenzae Not Detected (Not Detect); KPC (carbapenem-resist gene) Not Detected (Not Detect); Neisseria meningitidis Not Detected (Not Detect); Proteus species Not Detected (Not Detect); Pseudomonas aeruginosa Not Detected (Not Detect); Serratia marcescens Not Detected (Not Detect)
--- NOTE | 2017-09-28 11:48 | P.PN_ITS ---
Subjective Date Patient Seen: 09/28/17 Time Patient Seen: 08:30 Interval history: The patient reports feeling ongoing weakness. Blood cultures returned positive for E coli this morning. She had a 5 sec pause on telemetry over night, otherwise remaining in sinus rhythm. There was some question if this may have been a vagal reaction. Exam Vital Signs (past 8 hours): Vital Signs - 8 hr 3 09/28/17 04:25 Temperature 98.3 F Pulse Rate 69 Respiratory Rate 19 Blood Pressure 142/64 H Pulse Oximetry 95 Pulse Oximetry 95 Fraction of Inspired Oxygen 32 Oxygen Delivery Method Nasal Cannula Oxygen Flow Rate 2 Narrative Exam Narrative: General: Pleasant, obese female, appears fatigued though answers questions appropriately HEENT: Pupils equal round reactive, mucous membranes pink and dry Neck: Supple Lungs: Basilar crackles, otherwise clear Cardiac: Regular rate and rhythm without appreciable murmur Abdomen: Soft, obese, mildly distended, nontender Extremities: Without edema, mild atrophy of bilateral leg muscles Neurologic: Alert, oriented to person and place, moves all 4 extremities though globally weak Dermatologic: No rash or skin lesions Objective Labs Result Diagrams: 09/28/17 05:00 09/28/17 05:00 Labs: Laboratory Results - last 24 hr 09/25/17 09/28/17 09/28/17 05:15 05:00 05:00 WBC 13.4 H RBC 4.59 Hgb 12.5 Hct 37.7 MCV 82.1 MCH 27.2 MCHC 33.2 RDW 15.1 H Plt Count 189 Neut % (Auto) 86.2 H Lymph % (Auto) 6.3 L [place] % (Auto) 7.3 Eos % (Auto) 0.1 L Baso % (Auto) 0.1 Neut # (Auto) 74371 H Sodium 147 H Potassium 3.4 Chloride 104 Carbon Dioxide 32 BUN 24 H Creatinine 0.80 Estimated GFR > 60.0 BUN/Creatinine Ratio 30.0 H Glucose 151 H Calcium 9.0 A. baumannii (PCR) Not detected Deidre albicans (PCR) Not detected C. glabrata (PCR) Not detected C. krusei (PCR) Not detected C. parapsilosis (PCR) Not detected C. tropicalis (PCR) Not detected Enterobacteriac sp PCR Detected H E. cloacae complex PCR Not detected Enterococcus sp PCR Not detected E. coli (PCR) Detected H H. influenzae (PCR) Not detected Klebsiella oxytoca PCR Not detected Klebsiella pneumoniae Not detected List. monocytogenes PCR Not detected N. meningitidis (PCR) Not detected Proteus species (PCR) Not detected Serratia marcescens PCR Not detected Staphylococcus sp PCR Not detected Staph aureus (PCR) Not detected mecA-Methicil Res Gene Not Reportable Streptococcus sp PCR Not detected Group A Strep (PCR) Not detected Strep agalactiae (PCR) Not detected Strep pneumoniae (PCR) Not detected P. aeruginosa (PCR) Not detected Nayeli/B-Vanco Res Genes Not Reportable KPC-Carbap Res Gene PCR Not detected Assessment & Plan Plan: Assessment/Plan Narrative: 1. Nausea and vomiting: Possible viral gastroenteritis versus an E coli septicemia. Check urinalysis. Continue Levaquin and follow cultures.. Her nausea vomiting have resolved. She has not had any recurring nausea vomiting since hospital admission. Continue Zofran as needed. Right upper quadrant ultrasound did not reveal signs of cholelithiasis or cholecystitis. 2. E coli septicemia. Positive blood culture noted for E coli, likely pathogenic. Continue Levaquin and follow clinically. Monitor cultures and sensitivities. 3. Aspiration pneumonia: She was noted to be hypoxic and required 2 L of nasal cannula oxygen. Continue nasal cannula oxygen. Continue IV Levaquin for treating possible aspiration pneumonia 4. Acute hypoxic respiratory failure: Improved. Possibly secondary to possible aspiration pneumonia. We will treat underlying cause. 5. Acute pulmonary edema: She was found to have crackles on bilateral lower lung roman. She was on oral furosemide prior to hospital admission. She received a 1 time dose of IV furosemide 20 mg on 09/27/2017 and was restarted on oral furosemide per outpatient dosing with potassium supplement as well. Recheck her labs in the morning. 6. Dysphagia: She is followed by speech pathologist. She is currently on dysphagia diet with pureed solid and nectar thick liquid. 7. Severe dementia: Patient is diminished in her mental status E, likely due to infection. 8. Metabolic encephalopathy, likely due to infection. Continue to monitor. 9. Disposition: Discharge back to [facility] when medically stable. Quality VTE Deep Vein Thrombosis/Pulmonary Embolism Present on Admission: No
--- NOTE | 2017-09-28 12:30 | ST.IPTN ---
ROLL CLEANER Treatment Note ROLL CLEANER Treatment Note Start: 09/25/17 15:57 Freq: Status: Active Protocol: Document 09/28/17 12:30 [facility] (Rec: 09/28/17 14:06 [facility] [id number]) Speech Pathology Treatment Note Session Time Visit Start Time 12:30 Visit Stop Time 12:35 Setting Treatment Setting Acute Care Visit Type Note Type Patient Unavailable Subjective Observations/Patient Presentation Patient somnolent with two RNs present to transfer her via roxanne lift out of bed and into chair. The transfer did not rouse the patient, and she remained mostly somnolent in chair, unable to demonstrate adequate level of alertness for tolerance of meal (lunch). ROLL CLEANER did not initiate treatment due to RN's request to delay and patient's inability to rouse. ROLL CLEANER will follow up tomorrow. No billable charge.
--- NOTE | 2017-09-28 15:14 | CM.DPC ---
DCP Cont: Received call/VM today from Alexa at [facility]; a nurse had done bedside assessment this morning and as of today, pt is far from baseline. Pt does not meet LONG TERM criteria as stable and predictable today. At baseline, per Alexa, pt independently self propels her w/c and can transfer w/one person assist. Pt mostly alert and talkative. Alexa # [phone]. This [employer] will need to f/u Monday and also speak w/Guardian BRUNA Salmeron indicated in CM rounds this morning that pt may need SNF for 1:1 feeding...will review eval tomorrow re current recommendations. DEBRA Verdugo
[2017-09-28 16:17] LABS: Appearance Urine UA CLEAR; Bilirubin Urine UA NEGATIVE (NEGATIVE); Color Urine UA YELLOW; Glucose Urine UA NEGATIVE (Normal); Ketones Urine UA NEGATIVE (NEGATIVE); Leukocyte Esterase Urine UA NEGATIVE (NEGATIVE); Nitrite Urine UA POSITIVE (Negative); Occult Blood Urine UA 2+ (Negative); Protein Urine UA TRACE (Negative); Urobilinogen Urine UA 0.2 E.U./dL (0.2)
[2017-09-28 16:27] LABS: Bacteria Urine Many (>30)
[2017-09-28 16:28] LABS: Culture Indicated Urine Specimen Cultured; RBC Urine 1-5/HPF (0-5/HPF); Squamous Epithelial Cell Urine 1-5 /HPF; WBC Urine 1-5/HPF (0-5/HPF)
--- NOTE | 2017-09-28 18:55 | PC.NURSE ---
Addendum entered by Aliza Real R.N. 09/28/17 20:41: Pt awake. Able to responded to questions and follow cues. Snack provided. Reinforced swallow precautions. Pt denies pain. Bed alarm on. Original Note: Pt more awake. Oriented to self. States that she lives in a snf. Reoriented to place and situation. Able to move all extremities when requested. Generalized weakness. Brief change and reposition. Bed alarm on.
[2017-09-29 00:14] VITALS: BP 113/55; PULSE 60; RESP 30; TEMP 36.4; O2SAT 95
[2017-09-29] MEDS: NYSTATIN POWDER 15GM 1 APPLIC TOP ×5 (05:03→21:18)
[2017-09-29 05:15] VITALS: BP 150/73; PULSE 64; RESP 15; TEMP 36.8; O2SAT 95
[2017-09-29 05:49] LABS: Add Manual Diff / Slide Review NO; Basophils Percent Auto 0.2 % (0-2); Eosinophils Percent Auto 0.2 % (2-4); Hematocrit 38.5 % (36-46); Hemoglobin 12.7 g/dL (12.0-16.0); Lymphocytes Percent Auto 6.1 % (25-40); Mean Corpuscular Hemoglobin 27.3 PG (26-34); Mean Corpuscular Volume 82.9 fL (80-100); Monocytes Percent Auto 7.1 % (3-14); Neutrophils Absolute Auto 11600 /uL (3000-5900); Neutrophils Percent Auto 86.4 % (50-75); Platelet Count 179 X10^3/uL (150-400); Red Blood Cell Count 4.64 X10^6/uL (4.0-5.2); Red Cell Distribution Width 14.7 % (11.6-14.8); White Blood Cell Count 13.4 X10^3/uL (4.5-11.0)
[2017-09-29 06:01] LABS: BUN Creatinine Ratio 37.1 (6-22); Blood Urea Nitrogen 26 mg/dL (7-17); Calcium 9.2 mg/dL (8.4-10.2); Carbon Dioxide 32 mmol/L (22-32); Chloride 106 mmol/L (98-107); Estimated Glomerular Filt Rate > 60.0 mL/min (>60); Glucose 176 mg/dL (80-110); HEMOLYSIS 16 (0-50); Potassium 3.4 mmol/L (3.4-5.1); Sodium 147 mmol/L (137-145)
[2017-09-29] MEDS: levoFLOXacin 750 MG/150 ML PIGGYBACK 100 MG IV (06:31)
[2017-09-29 08:06] VITALS: BP 160/65; PULSE 60; RESP 20; TEMP 36.6; O2SAT 96
[2017-09-29] MEDS: SERTRALINE 50 MG TABLET 150 MG PO (08:48)
[2017-09-29] MEDS: ZIPRASIDONE 20 MG 1 EACH PO ×2 (08:48→16:53)
[2017-09-29] MEDS: SODIUM CHLORIDE 0.9% FLUSH 10 ML IV ×2 (08:49→21:18)
[2017-09-29] MEDS: FUROSEMIDE 20 MG TABLET PO (08:49)
[2017-09-29] MEDS: POTASSIUM CHLORIDE 20 MEQ TAB PO (08:49)
[2017-09-29] MEDS: POLYVINYL ALCOHOL DROPS 1 DROPS EYE-BOTH ×3 (08:49→21:18)
[2017-09-29] MEDS: LORATADINE 10 MG TABLET PO (08:49)
--- NOTE | 2017-09-29 10:05 | ST.IPTN ---
EPIC PRELUDE ANALYST Treatment Note EPIC PRELUDE ANALYST Treatment Note Start: 09/25/17 15:57 Freq: Status: Active Protocol: Document 09/29/17 09:36 [facility] (Rec: 09/29/17 10:04 [facility] [id number]) Speech Pathology Treatment Note Session Time Visit Start Time 09:00 Visit Stop Time 09:30 Total Visit Minutes 30 Visit Information Visit Number 3 Setting Treatment Setting Acute Care Visit Type Note Type Treatment Note Subjective Observations/Patient Presentation Patient seen sitting in bed following AM meal. Nursing staff administered patient's AM meal with 1:1 assist, max cues to remain alert and extended time. Chief Complaint(s) Swallowing Objective Short Term Goals Given min cues, patient will self-feed current diet of honey thick liquids, puree textures and implement safe swallow strategies such as small bites/sips and slow rate in order to increase functional independence. Treatment Activities Oral trials were limited due to patient's inability to remain alert without cues. Trials consisted of honey thick liquid via teaspoon and puree textures via teaspoon. Given patient's tardive dyskinesia and decreased alertness, her bolus acceptance was significantly impaired. She required cues for labial seal around the spoon with all trials. Oral containment improved and anterior spillage decreased as trials progressed. Given patient's weight and positioning in bed, palpation of the swallow was not feasible. No overt s/sx of aspiration were present during trials, however, patient's voice was noted to be weak. Assessment Patient Response to Treatment Fair Rehab Potential Fair Impairments Identified Dysphagia Additional Impairments Identified Decreased attention, alertness Assessment of Improvement Per EPIC PRELUDE ANALYST at patient's [facility], patient self-feeds honey thick liquids and puree textures at baseline. She appears to be tolerating her current diet with out overt s/sx of aspiration; however, she is not able to self-feed at this time and requires 1:1 assistance due to decreased alertness. She is not appropriate for an MBS at this time due to decreased alertness and inconsistency with following directions as well as poor positioning and inability to maintain upright posture. Plan Therapeutic Contents Swallowing/Feeding Comment Discussed w/ nursing Comment Continue w/ dysphagia therapy
[2017-09-29 11:12] VITALS: PULSE 79; RESP 21; O2SAT 93
[2017-09-29 11:30] VITALS: O2SAT 89; O2SAT 93
--- NOTE | 2017-09-29 12:20 | PM.PN.1 ---
Subjective Date Patient Seen: 09/29/17 Time Patient Seen: 12:00 Interval history: The patient reports feeling ongoing weakness and is very somnolent. Blood cultures returned positive for E coli this morning. She had a 5 sec pause on telemetry 2 nights ago but otherwise remaining in sinus rhythm. There was some question if this may have been a vagal reaction. Exam Vital Signs (past 8 hours): Vital Signs - 8 hr 09/29/17 05:15 09/29/17 08:06 09/29/17 11:12 Temperature 98.3 F 97.8 F Pulse Rate 64 60 79 Respiratory Rate 15 20 21 Blood Pressure 150/73 H 160/65 H Pulse Oximetry 95 96 93 Pulse Oximetry 93 Fraction of Inspired Oxygen 32 Oxygen Delivery Method Nasal Cannula Oxygen Flow Rate 2 Narrative Exam Narrative: General: Obese elderly woman in no acute distress Lungs: Fine crackles at bilateral lower lung roman, otherwise clear to auscultation, no wheezing appreciated Heart:Regular rate and rhythm without murmurs, rubs or gallops. ABDOMEN: Soft, mildly distended, nontender, no guarding or rebound. EXTREMITIES: no clubbing or edema, mild atrophy and bilateral leg muscles. NEUROLOGICAL: Alert and oriented to self only; she does move her extremities. SKIN: Warm, dry, no petechiae, no rashes or lesions. Objective Labs Result Diagrams: 09/29/17 05:02 09/29/17 05:02 Labs: Laboratory Results - last 24 hr 09/28/17 09/29/17 09/29/17 14:30 05:02 05:02 WBC 13.4 H RBC 4.64 Hgb 12.7 Hct 38.5 MCV 82.9 MCH 27.3 MCHC 33.0 RDW 14.7 Plt Count 179 Neut % (Auto) 86.4 H Lymph % (Auto) 6.1 L [place] % (Auto) 7.1 Eos % (Auto) 0.2 L Baso % (Auto) 0.2 Neut # (Auto) 65596 H Sodium 147 H Potassium 3.4 Chloride 106 Carbon Dioxide 32 BUN 26 H Creatinine 0.70 Estimated GFR > 60.0 BUN/Creatinine Ratio 37.1 H Glucose 176 H Calcium 9.2 Urine Color Yellow Urine Appearance Clear Urine pH 5.0 Ur Specific [place] 1.020 Urine Protein Trace H Urine Glucose (UA) Negative Urine Ketones Negative Urine Occult Blood 2+ H Urine Nitrate Positive H Urine Bilirubin Negative Urine Urobilinogen 0.2 Ur Leukocyte Esterase Negative Urine RBC 1-5/hpf Urine WBC 1-5/hpf Ur Squamous Epith Cells 1-5 /hpf Urine Bacteria Many (>30) H Ur Culture Indicated? Specimen cultured Micro UA Comment Not Reportable Assessment & Plan Plan: Assessment/Plan Narrative: 1. Nausea and vomiting, resolved: Probably due to E coli septicemia from urinary source, with abnormal urinalysis with pyuria. Continue Levaquin and follow cultures.. Her nausea vomiting have resolved. She has not had any recurring nausea vomiting since hospital admission. Continue Zofran as needed. Right upper quadrant ultrasound did not reveal signs of cholelithiasis or cholecystitis. 2. E coli septicemia due to UTI. Positive blood culture noted for E coli, likely pathogenic. Continue Levaquin and follow clinically. Monitor cultures and sensitivities. 3. Aspiration pneumonia: She was noted to be hypoxic and required 2 L of nasal cannula oxygen. Continue nasal cannula oxygen. Continue IV Levaquin for treating possible aspiration pneumonia. 4. Acute hypoxic respiratory failure: Improved. Possibly secondary to possible aspiration pneumonia. We will treat underlying cause. 5. Acute pulmonary edema: She was found to have crackles on bilateral lower lung roman. She was on oral furosemide prior to hospital admission. She received a 1 time dose of IV furosemide 20 mg on 09/27/2017 and was restarted on oral furosemide per outpatient dosing with potassium supplement as well. Recheck her labs in the morning. 6. Dysphagia: She is followed by speech pathologist. She is currently on dysphagia diet with pureed solid and nectar thick liquid. 7. Severe dementia: Patient is diminished in her mental status E, likely due to infection. 8. Metabolic encephalopathy, likely due to infection. Continue to monitor. 9. Weakness due to septicemia. PT consulted. 10. Disposition: Discharge back to [facility] when medically stable. 11. Code status: Obtain POLST from [facility] to clarify. Quality VTE Deep Vein Thrombosis/Pulmonary Embolism Present on Admission: No
--- NOTE | 2017-09-29 12:23 | P.PN_ITS ---
Subjective Date Patient Seen: 09/29/17 Time Patient Seen: 12:00 Interval history: The patient reports feeling ongoing weakness and is very somnolent. Blood cultures returned positive for E coli this morning. She had a 5 sec pause on telemetry 2 nights ago but otherwise remaining in sinus rhythm. There was some question if this may have been a vagal reaction. Exam Vital Signs (past 8 hours): Vital Signs - 8 hr 3 09/29/17 05:15 09/29/17 08:06 09/29/17 11:12 Temperature 98.3 F 97.8 F Pulse Rate 64 60 79 Respiratory Rate 15 20 21 Blood Pressure 150/73 H 160/65 H Pulse Oximetry 95 96 93 Pulse Oximetry 93 Fraction of Inspired Oxygen 32 Oxygen Delivery Method Nasal Cannula Oxygen Flow Rate 2 Narrative Exam Narrative: General: Obese elderly woman in no acute distress Lungs: Fine crackles at bilateral lower lung roman, otherwise clear to auscultation, no wheezing appreciated Heart:Regular rate and rhythm without murmurs, rubs or gallops. ABDOMEN: Soft, mildly distended, nontender, no guarding or rebound. EXTREMITIES: no clubbing or edema, mild atrophy and bilateral leg muscles. NEUROLOGICAL: Alert and oriented to self only; she does move her extremities. SKIN: Warm, dry, no petechiae, no rashes or lesions. Objective Labs Result Diagrams: 09/29/17 05:02 09/29/17 05:02 Labs: Laboratory Results - last 24 hr 09/28/17 09/29/17 09/29/17 14:30 05:02 05:02 WBC 13.4 H RBC 4.64 Hgb 12.7 Hct 38.5 MCV 82.9 MCH 27.3 MCHC 33.0 RDW 14.7 Plt Count 179 Neut % (Auto) 86.4 H Lymph % (Auto) 6.[address] [place] % (Auto) 7.1 Eos % (Auto) 0.2 L Baso % (Auto) 0.2 Neut # (Auto) 41162 H Sodium 147 H Potassium 3.4 Chloride 106 Carbon Dioxide 32 BUN 26 H Creatinine 0.70 Estimated GFR > 60.0 BUN/Creatinine Ratio 37.1 H Glucose 176 H Calcium 9.2 Urine Color Yellow Urine Appearance Clear Urine pH 5.0 Ur Specific [place] 1.020 Urine Protein Trace H Urine Glucose (UA) Negative Urine Ketones Negative Urine Occult Blood 2+ H Urine Nitrate Positive H Urine Bilirubin Negative Urine Urobilinogen 0.2 Ur Leukocyte Esterase Negative Urine RBC 1-5/hpf Urine WBC 1-5/hpf Ur Squamous Epith Cells 1-5 /hpf Urine Bacteria Many (>30) H Ur Culture Indicated? Specimen cultured Micro UA Comment Not Reportable Assessment & Plan Plan: Assessment/Plan Narrative: 1. Nausea and vomiting, resolved: Probably due to E coli septicemia from urinary source, with abnormal urinalysis with pyuria. Continue Levaquin and follow cultures.. Her nausea vomiting have resolved. She has not had any recurring nausea vomiting since hospital admission. Continue Zofran as needed. Right upper quadrant ultrasound did not reveal signs of cholelithiasis or cholecystitis. 2. E coli septicemia due to UTI. Positive blood culture noted for E coli, likely pathogenic. Continue Levaquin and follow clinically. Monitor cultures and sensitivities. 3. Aspiration pneumonia: She was noted to be hypoxic and required 2 L of nasal cannula oxygen. Continue nasal cannula oxygen. Continue IV Levaquin for treating possible aspiration pneumonia. 4. Acute hypoxic respiratory failure: Improved. Possibly secondary to possible aspiration pneumonia. We will treat underlying cause. 5. Acute pulmonary edema: She was found to have crackles on bilateral lower lung roman. She was on oral furosemide prior to hospital admission. She received a 1 time dose of IV furosemide 20 mg on 09/27/2017 and was restarted on oral furosemide per outpatient dosing with potassium supplement as well. Recheck her labs in the morning. 6. Dysphagia: She is followed by speech pathologist. She is currently on dysphagia diet with pureed solid and nectar thick liquid. 7. Severe dementia: Patient is diminished in her mental status E, likely due to infection. 8. Metabolic encephalopathy, likely due to infection. Continue to monitor. 9. Weakness due to septicemia. PT consulted. 10. Disposition: Discharge back to [facility] when medically stable. 11. Code status: Obtain POLST from [facility] to clarify. Quality VTE Deep Vein Thrombosis/Pulmonary Embolism Present on Admission: No
--- NOTE | 2017-09-29 13:35 | PT.IPTN ---
Current Diagnoses Pneumonitis due to inhalation of food and vomit (09/25/17) Physical Therapy Treatment Note Subjective Physical Therapy Visit Type Type Administrative Note Notes RN request PT hold evaluation for today; pt is more lethargic and less verbally responsive than earlier today or yesterday. RN does report it takes 3 people to transfer the patient, which is significantly below baseline. Will attempt again tomorrow.
[2017-09-29 13:48] VITALS: BMI 32.4
[2017-09-29] MEDS: ENOXAPARIN 40 MG/0.4 ML SYRINGE SUBCUT (16:52)
[2017-09-29] MEDS: SIMVASTATIN 10 MG TABLET PO (16:53)
[2017-09-29 17:34] VITALS: BP 137/63; PULSE 69; RESP 20; TEMP 36.9; O2SAT 94
--- NOTE | 2017-09-29 19:53 | PC.NURSE ---
1930- Rash noted to face. Bright red on cheeks and chin no other areas noted. Pt is afebrile and denies puritis. Will monitor.
[2017-09-30] VITALS (14 sets, daily range): BP systolic 111–151; BP diastolic 52–82; PULSE 55–114; RESP 17–24; TEMP 36.3–37.2; O2SAT 88–96
[2017-09-30] MEDS: NYSTATIN POWDER 15GM 1 APPLIC TOP ×6 (00:33→20:05)
[2017-09-30 04:54] LABS: Add Manual Diff / Slide Review NO; Basophils Percent Auto 0.2 % (0-2); Eosinophils Percent Auto 0.1 % (2-4); Hematocrit 38.6 % (36-46); Hemoglobin 12.8 g/dL (12.0-16.0); Lymphocytes Percent Auto 7.2 % (25-40); Mean Corpuscular HGB Conc 33.2 % (30-36); Mean Corpuscular Hemoglobin 27.2 PG (26-34); Monocytes Percent Auto 9.4 % (3-14); Neutrophils Absolute Auto 11500 /uL (3000-5900); Neutrophils Percent Auto 83.1 % (50-75); Platelet Count 211 X10^3/uL (150-400); Red Blood Cell Count 4.71 X10^6/uL (4.0-5.2); Red Cell Distribution Width 14.8 % (11.6-14.8); White Blood Cell Count 13.9 X10^3/uL (4.5-11.0)
[2017-09-30 04:57] LABS: BUN Creatinine Ratio 31.3 (6-22); Blood Urea Nitrogen 25 mg/dL (7-17); Calcium 9.2 mg/dL (8.4-10.2); Carbon Dioxide 36 mmol/L (22-32); Chloride 107 mmol/L (98-107); Estimated Glomerular Filt Rate > 60.0 mL/min (>60); Glucose 206 mg/dL (80-110); HEMOLYSIS < 15 (0-50); Potassium 3.4 mmol/L (3.4-5.1); Sodium 152 mmol/L (137-145)
[2017-09-30] MEDS: levoFLOXacin 750 MG/150 ML PIGGYBACK 100 MG IV (06:20)
[2017-09-30] MEDS: ENOXAPARIN 40 MG/0.4 ML SYRINGE SUBCUT (08:08)
[2017-09-30] MEDS: LORATADINE 10 MG TABLET PO (08:09)
[2017-09-30] MEDS: FUROSEMIDE 20 MG TABLET PO (08:09)
[2017-09-30] MEDS: ZIPRASIDONE 20 MG 1 EACH PO ×2 (08:09→17:12)
[2017-09-30] MEDS: POLYVINYL ALCOHOL DROPS 1 DROPS EYE-BOTH ×3 (08:09→20:04)
[2017-09-30] MEDS: SODIUM CHLORIDE 0.9% FLUSH 10 ML IV (08:10)
[2017-09-30] MEDS: SERTRALINE 50 MG TABLET 150 MG PO (08:10)
--- NOTE | 2017-09-30 11:37 | PT.IPTN ---
Current Diagnoses Pneumonitis due to inhalation of food and vomit (09/25/17) Physical Therapy Treatment Note M3 PT-IP Subjective Start: 09/29/17 13:03 Freq: NEEDED Status: Active Protocol: Document 09/30/17 11:35 AB (Rec: 09/30/17 11:37 AB [id number]) Subjective Physical Therapy Visit Type Notes attempted PT eval but pt is lethargic and unable to participate with PT at this time. nurse stated that pt is more lethargic today with difficulty taking her meds and eating her breakfast this morning. Will f/u this afternoon. Called [facility] to ask regarding pt's PLOF.
--- NOTE | 2017-09-30 11:54 | PM.PN.1 ---
Subjective Date Patient Seen: 09/30/17 Time Patient Seen: 11:55 Interval history: She is much more somnolent today nurse's note having a difficult time getting her to take meds she will not wake up Exam Vital Signs (past 8 hours): Vital Signs - 8 hr 09/30/17 04:52 09/30/17 08:00 09/30/17 08:25 Temperature 99 F 98.2 F Pulse Rate 62 62 Respiratory Rate 24 19 Blood Pressure 151/60 H 150/70 H Pulse Oximetry 95 93 93 Pulse Oximetry 93 Fraction of Inspired Oxygen 32 Oxygen Delivery Method Nasal Cannula Oxygen Flow Rate 2 Narrative Exam Narrative: They are transporting her via the lift this morning she is somnolent hard to arouse Lungs some mild crackles in the bases Heart irregular rhythm some bradycardia Abdomen obese nontender Extremities no edema Neuro exam she is currently not answering questions she will moan when I wake her up but that is about it. Skin warm and dry Objective Labs Result Diagrams: 09/30/17 04:28 09/30/17 04:28 Labs: Laboratory Results - last 24 hr 09/30/17 09/30/17 04:28 04:28 WBC 13.9 H RBC 4.71 Hgb 12.8 Hct 38.6 MCV 82.0 MCH 27.2 MCHC 33.2 RDW 14.8 Plt Count 211 Neut % (Auto) 83.1 H Lymph % (Auto) 7.2 L [place] % (Auto) 9.4 Eos % (Auto) 0.1 L Baso % (Auto) 0.2 Neut # (Auto) 89542 H Sodium 152 H Potassium 3.4 Chloride 107 Carbon Dioxide 36 H BUN 25 H Creatinine 0.80 Estimated GFR > 60.0 BUN/Creatinine Ratio 31.3 H Glucose 206 H Calcium 9.2 Assessment & Plan Plan: Assessment/Plan Narrative: 1. Nausea and vomiting, resolved: Probably due to E coli septicemia from urinary source, with abnormal urinalysis with pyuria. Continue Levaquin and follow cultures.. Her nausea vomiting have resolved. She has not had any recurring nausea vomiting since hospital admission. Continue Zofran as needed. Right upper quadrant ultrasound did not reveal signs of cholelithiasis or cholecystitis. 2. E coli septicemia due to UTI. Positive blood culture noted for E coli, likely pathogenic. This is resistant to Levaquin plan to switch her to ceftriaxone 3. Aspiration pneumonia: She was noted to be hypoxic and required 2 L of nasal cannula oxygen. Continue nasal cannula oxygen. Continue IV Levaquin for treating possible aspiration pneumonia. 4. Acute hypoxic respiratory failure: Improved. Possibly secondary to possible aspiration pneumonia. We will treat underlying cause. 5. Acute pulmonary edema: She was found to have crackles on bilateral lower lung roman. She was on oral furosemide prior to hospital admission. She received a 1 time dose of IV furosemide 20 mg on 09/27/2017 and was restarted on oral furosemide per outpatient dosing with potassium supplement as well. She has not been taking oral well also put her back on some mild IV fluids and watch the fluid overload carefully 6. Dysphagia: She is followed by speech pathologist. She is currently on dysphagia diet with pureed solid and nectar thick liquid. 7. Severe dementia: Patient is diminished in her mental status E, likely due to infection. 8. Metabolic encephalopathy, likely due to infection. More somnolent today possibly secondary to the untreated E coli. She had been on Levaquin for several days but this is resistance so clearly not being effective and will twitch this to ceftriaxone 9. Weakness due to septicemia. PT consulted. 10. Disposition: Discharge back to [facility] when medically stable. 11. Code status: Post form clarifies that she is DNR 12. Hypernatremia this could be causing her mental status changes. Plan to switch her from normal saline to D5W Quality VTE Deep Vein Thrombosis/Pulmonary Embolism Present on Admission: No
--- NOTE | 2017-09-30 11:58 | P.PN_ITS ---
Subjective Date Patient Seen: 09/30/17 Time Patient Seen: 11:55 Interval history: She is much more somnolent today nurse's note having a difficult time getting her to take meds she will not wake up Exam Vital Signs (past 8 hours): Vital Signs - 8 hr 3 09/30/17 04:52 09/30/17 08:00 09/30/17 08:25 Temperature 99 F 98.2 F Pulse Rate 62 62 Respiratory Rate 24 19 Blood Pressure 151/60 H 150/70 H Pulse Oximetry 95 93 93 Pulse Oximetry 93 Fraction of Inspired Oxygen 32 Oxygen Delivery Method Nasal Cannula Oxygen Flow Rate 2 Narrative Exam Narrative: They are transporting her via the lift this morning she is somnolent hard to arouse Lungs some mild crackles in the bases Heart irregular rhythm some bradycardia Abdomen obese nontender Extremities no edema Neuro exam she is currently not answering questions she will moan when I wake her up but that is about it. Skin warm and dry Objective Labs Result Diagrams: 09/30/17 04:28 09/30/17 04:28 Labs: Laboratory Results - last 24 hr 09/30/17 09/30/17 04:28 04:28 WBC 13.9 H RBC 4.71 Hgb 12.8 Hct 38.6 MCV 82.0 MCH 27.2 MCHC 33.2 RDW 14.8 Plt Count 211 Neut % (Auto) 83.1 H Lymph % (Auto) 7.2 L [place] % (Auto) 9.4 Eos % (Auto) 0.1 L Baso % (Auto) 0.2 Neut # (Auto) 94957 H Sodium 152 H Potassium 3.4 Chloride 107 Carbon Dioxide 36 H BUN 25 H Creatinine 0.80 Estimated GFR > 60.0 BUN/Creatinine Ratio 31.3 H Glucose 206 H Calcium 9.2 Assessment & Plan Plan: Assessment/Plan Narrative: 1. Nausea and vomiting, resolved: Probably due to E coli septicemia from urinary source, with abnormal urinalysis with pyuria. Continue Levaquin and follow cultures.. Her nausea vomiting have resolved. She has not had any recurring nausea vomiting since hospital admission. Continue Zofran as needed. Right upper quadrant ultrasound did not reveal signs of cholelithiasis or cholecystitis. 2. E coli septicemia due to UTI. Positive blood culture noted for E coli, likely pathogenic. This is resistant to Levaquin plan to switch her to ceftriaxone 3. Aspiration pneumonia: She was noted to be hypoxic and required 2 L of nasal cannula oxygen. Continue nasal cannula oxygen. Continue IV Levaquin for treating possible aspiration pneumonia. 4. Acute hypoxic respiratory failure: Improved. Possibly secondary to possible aspiration pneumonia. We will treat underlying cause. 5. Acute pulmonary edema: She was found to have crackles on bilateral lower lung roman. She was on oral furosemide prior to hospital admission. She received a 1 time dose of IV furosemide 20 mg on 09/27/2017 and was restarted on oral furosemide per outpatient dosing with potassium supplement as well. She has not been taking oral well also put her back on some mild IV fluids and watch the fluid overload carefully 6. Dysphagia: She is followed by speech pathologist. She is currently on dysphagia diet with pureed solid and nectar thick liquid. 7. Severe dementia: Patient is diminished in her mental status E, likely due to infection. 8. Metabolic encephalopathy, likely due to infection. More somnolent today possibly secondary to the untreated E coli. She had been on Levaquin for several days but this is resistance so clearly not being effective and will twitch this to ceftriaxone 9. Weakness due to septicemia. PT consulted. 10. Disposition: Discharge back to [facility] when medically stable. 11. Code status: Post form clarifies that she is DNR 12. Hypernatremia this could be causing her mental status changes. Plan to switch her from normal saline to D5W Quality VTE Deep Vein Thrombosis/Pulmonary Embolism Present on Admission: No
[2017-09-30] MEDS: DEXTROSE 5% WATER 1,000 ML 84 ML IV (12:19)
[2017-09-30] MEDS: CEFTRIAXONE 1 GM/50 ML FROZ.PIGGY IV (12:23)
[2017-09-30] MEDS: BISACODYL 10 MG SUPP PR (13:32)
--- NOTE | 2017-09-30 14:18 | PT.IPTN ---
Current Diagnoses Pneumonitis due to inhalation of food and vomit (09/25/17) Physical Therapy Treatment Note M3 PT-IP Subjective Start: 09/29/17 13:03 Freq: NEEDED Status: Active Protocol: Document 09/30/17 14:17 AB (Rec: 09/30/17 14:18 AB [id number]) Subjective Physical Therapy Visit Type Notes called ICU and stated that she does not think PT is going to be able to do anything with pt today. pt continues to be lethargic. will check again tomorrow.
--- NOTE | 2017-09-30 16:07 | CM.DPC ---
DCP Cont: Spoke w/Alexa today she is covering the phone for Marilee at [facility]; reviewed pt's needs and continued grogginess here at . Pt is alert and talkative at [facility]. Alexa has spoken w/Humera at [facility] about pt and pt is welcome at [facility]. PASSR needed. This [employer] unable to contact guardian Colleen Tamez re DCP today, this needs to be done. Also POST needs to be updated if possible. Following for coordination of DCP; DC date unknown at this time. KALI
[2017-09-30] MEDS: SIMVASTATIN 10 MG TABLET PO (17:12)
--- NOTE | 2017-09-30 17:24 | PC.NURSE ---
TRANSFER Received pt at approximately 1520 via bed, accompanied by WORK MANAGER, Joni. pt somnolent, wakens slightly with moderate verbal stimuli, able to follow simple commands and answer simple yes/no questions but will quickly fall asleep again. total car. no pain behaviors identified. frequent visual checks. reposition Q2H.
[2017-10-01] VITALS (11 sets, daily range): BP systolic 135–165; BP diastolic 63–89; PULSE 62–109; RESP 14–20; TEMP 36.2–36.9; O2SAT 90–97
[2017-10-01] MEDS: NYSTATIN POWDER 15GM 1 APPLIC TOP ×5 (01:12→20:44)
[2017-10-01] MEDS: DEXTROSE 5% WATER 1,000 ML 84 ML IV ×2 (01:12→12:41)
--- NOTE | 2017-10-01 03:28 | PC.NURSE ---
Addendum entered by Tatiana Yen R.N. 10/01/17 05:32: Patient repositioned. O2 sat 95% on 1L/min oxygen. Did groan and open eyes slightly in response to name being spoken but no other response. SCD's removed for next hour as per protocol. Original Note: Patient is mostly non responsive. She did open eyes during repositioning, had some resistance of extremities against gravity and moved feet in response to touch but is non verbal. Breath sounds CTA. Is on oxygen at 2L/min per NC with sat of 97% so oxygen decreased to 1L/min. HRR with tele reading at 0000 of SR/SB and current HR of 69. BT hypoactive and abdomen appears rotund/distended. Incontinent of urine. Not moving self so is being repositioned q2h. Inner buttocks and hugh-rectal area very reddened with sloughing skin so zinc barrier cream applied after skin cleansed. Wearing bilateral SCD's. Fall risk score is high so bed alarm is activated. FLACC score of 0.
[2017-10-01 05:40] LABS: Add Manual Diff / Slide Review NO; Basophils Percent Auto 0.1 % (0-2); Eosinophils Percent Auto 0.8 % (2-4); Hematocrit 41.2 % (36-46); Hemoglobin 13.7 g/dL (12.0-16.0); Lymphocytes Percent Auto 8.6 % (25-40); Mean Corpuscular HGB Conc 33.2 % (30-36); Mean Corpuscular Hemoglobin 27.4 PG (26-34); Mean Corpuscular Volume 82.3 fL (80-100); Monocytes Percent Auto 11.6 % (3-14); Neutrophils Absolute Auto 14200 /uL (3000-5900); Neutrophils Percent Auto 78.9 % (50-75); Platelet Count 229 X10^3/uL (150-400); Red Blood Cell Count 5.01 X10^6/uL (4.0-5.2)
[2017-10-01 05:44] LABS: Alanine Aminotransferase 44 IU/L (9-52); Albumin 3.1 g/dL (3.5-5.0); Albumin Globulin Ratio 1.1 (1.0-2.8); Alkaline Phosphatase 69 U/L (38-126); Aspartate Aminotransferase 43 IU/L (14-36); BUN Creatinine Ratio 32.9 (6-22); Bilirubin Total 0.6 mg/dL (0.2-1.3); Blood Urea Nitrogen 23 mg/dL (7-17); Calcium 8.7 mg/dL (8.4-10.2); Carbon Dioxide 35 mmol/L (22-32); Chloride 103 mmol/L (98-107); Estimated Glomerular Filt Rate > 60.0 mL/min (>60); Globulin 2.7 g/dL (1.7-4.1); Glucose 238 mg/dL (80-110); HEMOLYSIS < 15 (0-50); Potassium 3.1 mmol/L (3.4-5.1); Sodium 147 mmol/L (137-145); Total Protein 5.8 g/dL (6.3-8.2)
--- NOTE | 2017-10-01 07:30 | PM.PN.1 ---
Subjective Date Patient Seen: 10/01/17 Time Patient Seen: 07:30 Interval history: She has no complaints new complaints this morning Exam Vital Signs (past 8 hours): Vital Signs - 8 hr 10/01/17 01:01 10/01/17 03:27 10/01/17 05:31 Temperature 97.6 F 98.0 F Pulse Rate 62 64 Respiratory Rate 18 16 Blood Pressure 135/70 H 152/77 H Pulse Oximetry 96 97 95 Pulse Oximetry 95 Fraction of Inspired Oxygen 32 Oxygen Delivery Method Nasal Cannula Oxygen Flow Rate 1 Narrative Exam Narrative: She is more awake today conversant very confused which is her baseline Lungs are clear Heart irregular Abdomen soft nontender obese Lower extremities trace edema Neuro exam no focal deficits more awake she does have baseline dementia Skin warm and dry Objective Labs Result Diagrams: 10/01/17 05:16 10/01/17 05:16 Labs: Laboratory Results - last 24 hr 10/01/17 10/01/17 05:16 05:16 WBC 18.0 H RBC 5.01 Hgb 13.7 Hct 41.2 MCV 82.3 MCH 27.4 MCHC 33.2 RDW 15.0 H Plt Count 229 Neut % (Auto) 78.9 H Lymph % (Auto) 8.6 L [place] % (Auto) 11.6 Eos % (Auto) 0.8 L Baso % (Auto) 0.1 Neut # (Auto) 01759 H Sodium 147 H Potassium 3.1 L Chloride 103 Carbon Dioxide 35 H BUN 23 H Creatinine 0.70 Estimated GFR > 60.0 BUN/Creatinine Ratio 32.9 H Glucose 238 H Calcium 8.7 Total Bilirubin 0.6 AST 43 H ALT 44 Alkaline Phosphatase 69 Total Protein 5.8 L Albumin 3.1 L Globulin 2.7 Albumin/Globulin Ratio 1.1 Assessment & Plan Plan: Assessment/Plan Narrative: 1. Nausea and vomiting, resolved: Probably due to E coli septicemia from urinary source, with abnormal urinalysis with pyuria. Continue Levaquin and follow cultures.. Her nausea vomiting have resolved. She has not had any recurring nausea vomiting since hospital admission. Continue Zofran as needed. Right upper quadrant ultrasound did not reveal signs of cholelithiasis or cholecystitis. 2. E coli septicemia due to UTI. Positive blood culture noted for E coli, likely pathogenic. This is resistant to Levaquin plan to switch her to ceftriaxone. She has been on the ceftriaxone since September 30 3. Aspiration pneumonia: She was noted to be hypoxic and required 2 L of nasal cannula oxygen. Continue nasal cannula oxygen. Continue IV Levaquin for treating possible aspiration pneumonia. 4. Acute hypoxic respiratory failure: Improved. Possibly secondary to possible aspiration pneumonia. We will treat underlying cause. 5. Acute pulmonary edema: She was found to have crackles on bilateral lower lung roman. She was on oral furosemide prior to hospital admission. She received a 1 time dose of IV furosemide 20 mg on 09/27/2017 and was restarted on oral furosemide per outpatient dosing with potassium supplement as well. She has not been taking oral well also put her back on some mild IV fluids and watch the fluid overload carefully 6. Dysphagia: She is followed by speech pathologist. She is currently on dysphagia diet with pureed solid and nectar thick liquid. 7. Severe dementia: Patient is diminished in her mental status E, likely due to infection. 8. Metabolic encephalopathy, likely due to infection. Also due to the hypernatremia the lethargy and somnolence has improved 9. Weakness due to septicemia. PT consulted. 10. Disposition: Discharge back to [facility] when medically stable. 11. Code status: Post form clarifies that she is DNR 12. Hypernatremia this could be causing her mental status changes. Sodium down to 147 this morning plan to continue D5W. Quality VTE Deep Vein Thrombosis/Pulmonary Embolism Present on Admission: No
[2017-10-01] MEDS: ENOXAPARIN 40 MG/0.4 ML SYRINGE SUBCUT (08:30)
--- NOTE | 2017-10-01 09:30 | PC.NURSE ---
Day shift: Pt somnolent this AM. Not safe to give PO meds. High aspiration risk as Pt not opening eyes on assessment or responding to questions with words. Will notify MD. Continuing to monitor. Call light in reach. Bed alarm on.
--- NOTE | 2017-10-01 11:00 | PT.IPTN ---
Current Diagnoses Pneumonitis due to inhalation of food and vomit (09/25/17) Physical Therapy Treatment Note M3 PT-IP Subjective Start: 09/29/17 13:03 Freq: NEEDED Status: Active Protocol: Document 10/01/17 10:58 [facility] (Rec: 10/01/17 11:00 [facility] [id number]) Subjective Physical Therapy Visit Type Notes Pt somnolent, shakes head yes to 1-2 questions and then falls sleep. Very difficult to arouse. Pt is not appropriate for physical therapy evaluation at this time. Will check in later this date if pt is more alert.
[2017-10-01] MEDS: CEFTRIAXONE 1 GM/50 ML FROZ.PIGGY IV (12:41)
--- NOTE | 2017-10-01 13:41 | PT.IPTN ---
Current Diagnoses Pneumonitis due to inhalation of food and vomit (09/25/17) Physical Therapy Treatment Note M3 PT-IP Subjective Start: 09/29/17 13:03 Freq: NEEDED Status: Active Protocol: Document 10/01/17 13:15 [facility] (Rec: 10/01/17 13:41 [facility] [id number]) Subjective Physical Therapy Visit Type Notes Pt sleeping, unable to arouse to conversate or participate in PT evaluation. Pt continues to be very somnolent.
[2017-10-01] MEDS: POLYVINYL ALCOHOL DROPS 1 DROPS EYE-BOTH ×2 (14:30→20:44)
--- NOTE | 2017-10-01 15:21 | CM.DPC ---
DCP Cont: Per MD, pt making progress but not medically stable for discharge yet today. Pt has been accepted at [facility] before safe return back to [facility]. Copy of updated POLST in pt chart signed by pt's Guardian. PASRR done but needs MD signature for mental health diagnoses. SW attempted to call pt's Guardian Colleen but no answer, Monday, but pt not stable for d/c yet so SW to call tomorrow to confirm d/c plan of [facility] before [facility]. Plan: SW to follow for confirming d/c plan with pt's guardian Colleen of [facility] prior to return to [facility]. MD to sign PASRR prior to d/c. DEBRA Arnold
--- NOTE | 2017-10-01 18:19 | PC.NURSE ---
patient responds to voice and touch, but does not respond to questions and by observation from this RN cannot adequately handle her secretions as well. suction is set up and oral care has been performed with wet sponge-tipped suction. patient has been turned to left side and brief changed. groin area and under breasts has been cleaned, dried, and nystatin powder applied. This RN held all PO 1700 medications because by assessment, patient does not appear safe to swallow at this time; will continue to re-evaluate, Dr. Espinoza is aware. patient's potassium level is 3.1 and potassium was held this AM d/t swallowing issues; per Dr. Espinoza, ordered K-rider of 40 meq times one now. patient's HOB is elevated and room is within view of nurse station. call light is in reach.
[2017-10-01] MEDS: POTASSIUM CHLORIDE IN WATER 40 MEQ/400 ML PIGGYBACK 100 MEQ IV (20:50)
--- NOTE | 2017-10-01 23:45 | PC.NURSE ---
Patient resting quietly, no s/sx of pain/discomfort noted. IV fluids infusing per orders. LS decreased O2 @ 1L nasal cannula. Answers simple yes/no questions, but falls easily back to sleep. Tele in place. HOB elevated. Bed alarm on and call light within reach.
[2017-10-02] VITALS (9 sets, daily range): BP systolic 122–148; BP diastolic 62–74; PULSE 51–57; RESP 16–20; TEMP 35.8–36.4; O2SAT 91–97
--- NOTE | 2017-10-02 | DI.CT.S_ITS ---
PROCEDURE: CT HEAD/BRAIN WO CON INDICATIONS: obtunded TECHNIQUE: Noncontrast 4.5 mm thick angled axial sections acquired from the foramen magnum to the vertex, with coronal and sagittal reformats. For radiation dose reduction, the following was used: automated exposure control, adjustment of mA and/or kV according to patient size. COMPARISON: [facility], CT, HEAD WITHOUT CONTRAST, 01/08/2009, 16:42. [facility], CT, HEAD WITHOUT CONTRAST, 10/19/2012, 17:44. [facility], CT, HEAD WITHOUT CONTRAST, 03/15/2014, 13:31. [facility], CT, HEAD WITHOUT CONTRAST, 11/30/2016, 10:54. FINDINGS: Image quality: Excellent. CSF spaces: Basal cisterns are patent. No extra-axial fluid collections. The ventricles are symmetric in size and shape. Brain: No intracranial bleeds or masses. There is cerebral volume loss for age, with resultant ventricular and sulcal prominence. There are periventricular and deep white matter chronic small vessel ischemic changes. There is intracranial internal carotid artery atherosclerosis. Skull and face: There is mild left lateral forehead soft tissue thickening seen, as on series 2 image 17. This can be seen on the prior CT dated 11/30/16 and is not considered to be related to an acute injury. A prominent venous law can be seen within the left calvarium, as on series 4 image 22. This is unchanged compared to prior examinations. Calvarium and visualized facial bones appear intact, without suspicious lesions. Sinuses: Visualized sinuses and mastoids are clear. IMPRESSION: No acute intracranial process is seen. Stable left lateral forehead subcutaneous soft tissue thickening. Dictated by: Zhen Pulido M.D. on 10/02/2017 at 13:25 Approved by: Zhen Pulido M.D. on 10/02/2017 at 13:34
[2017-10-02] MEDS: NYSTATIN POWDER 15GM 1 APPLIC TOP ×4 (02:12→20:09)
[2017-10-02 05:55] LABS: Add Manual Diff / Slide Review NO; Basophils Percent Auto 0.2 % (0-2); Lymphocytes Percent Auto 13.4 % (25-40); Mean Corpuscular HGB Conc 33.3 % (30-36); Mean Corpuscular Hemoglobin 27.4 PG (26-34); Mean Corpuscular Volume 82.1 fL (80-100); Monocytes Percent Auto 7.6 % (3-14); Neutrophils Absolute Auto 11100 /uL (3000-5900); Neutrophils Percent Auto 74.8 % (50-75); Platelet Count 218 X10^3/uL (150-400); Red Blood Cell Count 4.75 X10^6/uL (4.0-5.2); Red Cell Distribution Width 14.3 % (11.6-14.8); White Blood Cell Count 14.8 X10^3/uL (4.5-11.0)
[2017-10-02 06:00] LABS: Blood Urea Nitrogen 18 mg/dL (7-17); Calcium 8.4 mg/dL (8.4-10.2); Carbon Dioxide 34 mmol/L (22-32); Chloride 102 mmol/L (98-107); Estimated Glomerular Filt Rate > 60.0 mL/min (>60); Glucose 193 mg/dL (80-110); HEMOLYSIS < 15 (0-50); Potassium 3.4 mmol/L (3.4-5.1); Sodium 143 mmol/L (137-145)
[2017-10-02] MEDS: DEXTROSE 5% WATER 1,000 ML 84 ML IV ×2 (06:26→20:07)
--- NOTE | 2017-10-02 08:05 | PT.IPTN ---
Current Diagnoses Pneumonitis due to inhalation of food and vomit (09/25/17) Physical Therapy Treatment Note M3 PT-IP Subjective Start: 09/29/17 13:03 Freq: NEEDED Status: Active Protocol: Document 10/02/17 07:58 RS (Rec: 10/02/17 08:05 RS [id number]) Subjective Physical Therapy Visit Type Type Administrative Note Notes Pt still extremely somnolent. She is able to open her eyes to her name, but this is the only response she can give. At this time pt not answering any yes/no questions and unable to follow simple 1-step commands (squeeze my hand, wiggle your toes, open your mouth). HOB was elevated to try to get pt into a more upright/awake position, but this had no impact on pt's interactions. Pt not appropriate to participate in therapy session at this time, will continue to hold. If pt not appropriate later today then will likely discharge PT order and wait for improvement in patient's status for therapy to be re-ordered.
[2017-10-02] MEDS: ENOXAPARIN 40 MG/0.4 ML SYRINGE SUBCUT (09:22)
[2017-10-02] MEDS: POLYVINYL ALCOHOL DROPS 1 DROPS EYE-BOTH (09:24)
--- NOTE | 2017-10-02 09:35 | PC.NURSE ---
Day shift: Not safe to give Pt PO meds this AM due to somnolence. Opens eyes to voice but unable to voice any responses and falls back asleep (closes eyes). Eye drops and Lovenox given per JUN. Bed alarm on. Call light in reach. Door open for line of site.
--- NOTE | 2017-10-02 10:43 | PC.NURSE ---
Day shift: Speech therapist in room w/ Pt for oral care and dia jack. This tag writer gave Ziprasidone in applesauce but Pt unable to swallow and the med and applesauce had to be suctioned out.
--- NOTE | 2017-10-02 11:10 | ST.IPTN ---
CREATIVE WRITING ENGLISH PROFESSOR Treatment Note CREATIVE WRITING ENGLISH PROFESSOR Treatment Note Start: 09/25/17 15:57 Freq: Status: Active Protocol: Document 10/02/17 10:59 [facility] (Rec: 10/02/17 11:10 [facility] [id number]) Speech Pathology Treatment Note Session Time Visit Start Time 10:20 Visit Stop Time 10:35 Total Visit Minutes 15 Setting Treatment Setting Acute Care Visit Type Note Type Treatment Note Next Note Type Next Note Type Treatment Note Subjective Identification Type Name ID Card Identification Reconciled With ID Bracelet Others Present Nursing Additional Therapist Observations/Patient Presentation Patient resting in bed with no family present. RN, Patricia , present to administer crushed medication in carrier. Respiratory therapy present at the end of the session to check O2 sats. Patient able to rouse from verbal cue from CREATIVE WRITING ENGLISH PROFESSOR. Able to answer yes/no questions and repeat simple phrases from CREATIVE WRITING ENGLISH PROFESSOR cue. Patient quickly fell asleep after 10 minutes of working with CREATIVE WRITING ENGLISH PROFESSOR. As a result, treatment was discontinued and her RN was unable to complete adminsitration of mornign medication. Chief Complaint(s) Swallowing Additional Areas of Concern Medical status Rehab Expectation/Goals: Patient Goals Patient will medically improve in order to function at baseline Patient Knowledge/Awareness of CREATIVE WRITING ENGLISH PROFESSOR Role Poor in Treatment Objective Short Term Goals Given min cues, patient will self-feed current diet of honey thick liquids, puree textures and implement safe swallow strategies such as small bites/sips and slow rate in order to increase functional independence. (Unable to self-feed; required tactile cues from CREATIVE WRITING ENGLISH PROFESSOR to close mouth to accept water from spoon; 10/02/17) Alf Goals Patient will return to baseline level of function of self-feeding through medical improvement. Treatment Activities Oral trials were limited due to patient's inability to remain alert despite max cues. Trials consisted of honey thick liquid via teaspoon and puree textures via teaspoon. Given patient's tardive dyskinesia and decreased alertness, her bolus acceptance was significantly impaired. She required max cues from CREATIVE WRITING ENGLISH PROFESSOR to close her mouth after accepting small bolus size of honey thick water x2. With these cues, she was able to successfully swallow this x2. No overt s/sx of aspiration were present during trials. RN adminsitered crushed medication in carrier x2. Patient immediately fatigued and struggled to keep her eyes open. Max verbal cues and repositioning done by CREATIVE WRITING ENGLISH PROFESSOR to keep patient alert, but no oral response was observed after these two trials. Suction was performed to extrace the applesauce and crushed medication to prevent aspiration. Treatment then discontinued due to the patient's lethargy and inability to participate safely in further trials of PO intake. Assessment Patient Response to Treatment Excellent Rehab Potential Fair Impairments Identified Dementia Dysphagia Progress Towards Goals Slow Progress Comment Poor patient ability to participate due to medical complications & lethargy Assessment of Improvement Slow improvement due to compromised medical status and dementia. Patient continues to be very lethargic and quickly falls asleep after rousing. Able to tolerate two small trials of honey thick water, but difficulty continued with trials of appelsauce. Patient continues to be far from baseline (difficulty remaining awake, unable to self-feed). Continue to monitor and encourage patient to participate in order to rehabilitate, if able. Reviewed with Patient Goals Patient/Caregiver Understanding Poor Plan Comment Follow up tomorrow Length of Session 15 Minutes Treatment Emphasis Next Session Dyspahgia management Therapeutic Contents Oral Motor Training Swallowing/Feeding Provided Patient/Caregiver Instruction Plan of Care Therapy Recommendations Continue with Current Program
--- NOTE | 2017-10-02 11:11 | P.PN_ITS ---
Subjective Date Patient Seen: 10/02/17 Time Patient Seen: 11:06 Interval history: She remains somnolent and only briefly arousable Exam Vital Signs (past 8 hours): Vital Signs - 8 hr 3 10/02/17 05:51 10/02/17 07:41 10/02/17 07:45 Temperature 97.1 F L 97.6 F Pulse Rate 55 L 57 L Respiratory Rate 16 20 Blood Pressure 146/74 H 148/74 H Pulse Oximetry 95 94 97 Pulse Oximetry 97 Fraction of Inspired Oxygen 32 Oxygen Delivery Method Nasal Cannula Oxygen Flow Rate 1.5 Narrative Exam Narrative: She will wake up briefly but not long enough to talk to her at all. She remains confused when she is awake. Oropharynx clear Neck is supple Lungs clear Heart regular rhythm Abdomen soft Extremities edematous both upper and lower Neuro exam some meal and no focal deficits Objective Labs Result Diagrams: 10/02/17 05:37 10/02/17 05:37 Labs: Laboratory Results - last 24 hr 10/02/17 10/02/17 05:37 05:37 WBC 14.8 H RBC 4.75 Hgb 13.0 Hct 39.0 MCV 82.1 MCH 27.4 MCHC 33.3 RDW 14.3 Plt Count 218 Neut % (Auto) 74.8 Lymph % (Auto) 13.4 L [place] % (Auto) 7.6 Eos % (Auto) 4.0 Baso % (Auto) 0.2 Neut # (Auto) 67007 H Sodium 143 Potassium 3.4 Chloride 102 Carbon Dioxide 34 H BUN 18 H Creatinine 0.60 Estimated GFR > 60.0 BUN/Creatinine Ratio 30.0 H Glucose 193 H Calcium 8.4 Assessment & Plan Plan: Assessment/Plan Narrative: 1. Nausea and vomiting, resolved: Probably due to E coli septicemia from urinary source, with abnormal urinalysis with pyuria. Continue Levaquin and follow cultures.. Her nausea vomiting have resolved. She has not had any recurring nausea vomiting since hospital admission. Continue Zofran as needed. Right upper quadrant ultrasound did not reveal signs of cholelithiasis or cholecystitis. 2. E coli septicemia due to UTI. Positive blood culture noted for E coli, likely pathogenic. This is resistant to Levaquin plan to switch her to ceftriaxone. She has been on the ceftriaxone since September 30 3. Aspiration pneumonia: She was noted to be hypoxic and required 2 L of nasal cannula oxygen. Continue nasal cannula oxygen. Continue IV Levaquin for treating possible aspiration pneumonia. 4. Acute hypoxic respiratory failure: Improved. Possibly secondary to possible aspiration pneumonia. We will treat underlying cause. 5. Acute pulmonary edema: She was found to have crackles on bilateral lower lung roman. She was on oral furosemide prior to hospital admission. She received a 1 time dose of IV furosemide 20 mg on 09/27/2017 and was restarted on oral furosemide per outpatient dosing with potassium supplement as well. She has not been taking oral well also put her back on some mild IV fluids and watch the fluid overload carefully plan to give her some more IV Lasix he looks little fluid overloaded 6. Dysphagia: She is followed by speech pathologist. She is currently on dysphagia diet with pureed solid and nectar thick liquid. She is too somnolent To eat at this point 7. Severe dementia: Patient is diminished in her mental status E, likely due to infection. 8. Metabolic encephalopathy, likely due to infection. Her somnolence persists. Plan to do a CT scan of her head 9. Weakness due to septicemia. PT consulted. 10. Disposition: Discharge back to [facility] when medically stable. 11. Code status: Post form clarifies that she is DNR 12. Hypernatremia this could be causing her mental status changes. Sodium down to 143 this morning plan to continue D5W. Quality VTE Deep Vein Thrombosis/Pulmonary Embolism Present on Admission: No
[2017-10-02] MEDS: FUROSEMIDE 20 MG/2 ML VIAL IV (11:25)
[2017-10-02] MEDS: CEFTRIAXONE 1 GM/50 ML FROZ.PIGGY IV (11:59)
--- NOTE | 2017-10-02 12:08 | PC.NURSE ---
Day shift: Pt off unit for CT at approx 1200. Went down in AC bed with O2. SL until return.
--- NOTE | 2017-10-02 12:16 | PC.NURSE ---
Day shift: BAck on unit 1215. O2 back on and IV fluids going per JUN. Bed alarm on.
--- NOTE | 2017-10-02 13:33 | PT.IPTN ---
Current Diagnoses Pneumonitis due to inhalation of food and vomit (09/25/17) Physical Therapy Treatment Note M3 PT-IP Subjective Start: 09/29/17 13:03 Freq: NEEDED Status: Active Protocol: Document 10/02/17 13:31 [facility] (Rec: 10/02/17 13:33 RS [id number]) Subjective Physical Therapy Visit Type Type Administrative Note Notes BAND SEWER mentions giving pt a bed bath about an hour ago, and patient didn't wake up at all during it. PT eval was again attempted, but pt with no change from this morning's attempt by this designer writer. Patient is not appropriate to participate in therapy evaluation at this time. Group concensus from morning rounds is to keep patient on therapy caseload for another day or so, and if still not able to participate then can discharge PT order.
[2017-10-02] MEDS: ZIPRASIDONE 20 MG 1 EACH PO (16:52)
--- NOTE | 2017-10-02 19:00 | PC.NURSE ---
Lorie shift note: Patient sleeping between care, Arouses to voice and light touch. Responds to staff with one word, appears more awake and alert. Continue on O2 at 2L via NC.
[2017-10-03] VITALS (12 sets, daily range): BP systolic 120–155; BP diastolic 59–106; PULSE 52–69; RESP 14–20; TEMP 35.8–36.6; O2SAT 92–100
[2017-10-03] MEDS: NYSTATIN POWDER 15GM 1 APPLIC TOP ×3 (00:58→11:04)
--- NOTE | 2017-10-03 04:46 | PC.NURSE ---
NOC Note: Pt is alert to self, not to her situation. She is slow to respond but will rouse to verbal and tactile stimuli. 2pa with turning and brief change. Pt has made no attempt to move independently in the bed. O2 96-99% on 2L, NC, Resp are shallow and LS are diminished, occ dry cough noted. Pt denies pain.
[2017-10-03 05:46] LABS: Add Manual Diff / Slide Review NO; Basophils Percent Auto 0.4 % (0-2); Eosinophils Percent Auto 4.4 % (2-4); Hematocrit 39.9 % (36-46); Hemoglobin 13.2 g/dL (12.0-16.0); Lymphocytes Percent Auto 14.9 % (25-40); Mean Corpuscular Volume 81.7 fL (80-100); Monocytes Percent Auto 5.4 % (3-14); Neutrophils Absolute Auto 11200 /uL (3000-5900); Neutrophils Percent Auto 74.9 % (50-75); Platelet Count 221 X10^3/uL (150-400); Red Blood Cell Count 4.88 X10^6/uL (4.0-5.2); Red Cell Distribution Width 14.4 % (11.6-14.8); White Blood Cell Count 14.9 X10^3/uL (4.5-11.0)
[2017-10-03 05:55] LABS: Alanine Aminotransferase 49 IU/L (9-52); Albumin Globulin Ratio 1.1 (1.0-2.8); Alkaline Phosphatase 65 U/L (38-126); Aspartate Aminotransferase 39 IU/L (14-36); BUN Creatinine Ratio 23.3 (6-22); Bilirubin Total 0.6 mg/dL (0.2-1.3); Blood Urea Nitrogen 14 mg/dL (7-17); Calcium 8.3 mg/dL (8.4-10.2); Carbon Dioxide 36 mmol/L (22-32); Chloride 96 mmol/L (98-107); Estimated Glomerular Filt Rate > 60.0 mL/min (>60); Globulin 2.8 g/dL (1.7-4.1); Glucose 178 mg/dL (80-110); HEMOLYSIS < 15 (0-50); Sodium 139 mmol/L (137-145); Total Protein 5.8 g/dL (6.3-8.2)
[2017-10-03] MEDS: DEXTROSE 5% WATER 1,000 ML 84 ML IV (08:39)
--- NOTE | 2017-10-03 10:09 | SLP.IPNOTE ---
Spoke with RN, Babita, and complex care nurse practitioner, Ting, regarding the patient's status. Patient continues to be obtunded with minimal participation ability. Extremely difficult to rouse and maintain alertness to participate in therapy. PT attempted to work with her this morning but was minimally successful. RN spoke with Dr Espinoza regarding how to proceed with therapy intervention v. hospice. Dr Espinoza requested that patient continue to be fed.
--- NOTE | 2017-10-03 10:22 | PM.PN.1 ---
Subjective Date Patient Seen: 10/03/17 Time Patient Seen: 10:22 Interval history: A little more awake today but still fast to go to sleep Exam Vital Signs (past 8 hours): Vital Signs - 8 hr 10/03/17 05:29 10/03/17 06:00 10/03/17 08:00 Temperature 97.8 F 98 F 96.5 F L Pulse Rate 53 L 52 L Respiratory Rate 18 19 14 Blood Pressure 132/67 H 147/72 H Pulse Oximetry 98 98 100 Pulse Oximetry 100 Fraction of Inspired Oxygen 32 Oxygen Delivery Method Nasal Cannula Oxygen Flow Rate 2 Narrative Exam Narrative: She was able to be awake to answer simple questions but again was fast to go back to sleep Lungs are clear Heart regular rhythm Abdomen soft obese nontender Extremities with edema throughout Neuro exam is somnolent but no focal deficits Objective Labs Result Diagrams: 10/03/17 05:26 10/03/17 05:26 Labs: Laboratory Results - last 24 hr 10/03/17 10/03/17 05:26 05:26 WBC 14.9 H RBC 4.88 Hgb 13.2 Hct 39.9 MCV 81.7 MCH 27.0 MCHC 33.0 RDW 14.4 Plt Count 221 Neut % (Auto) 74.9 Lymph % (Auto) 14.9 L [place] % (Auto) 5.4 Eos % (Auto) 4.4 H Baso % (Auto) 0.4 Neut # (Auto) 08913 H Sodium 139 Potassium 3.0 L Chloride 96 L Carbon Dioxide 36 H BUN 14 Creatinine 0.60 Estimated GFR > 60.0 BUN/Creatinine Ratio 23.3 H Glucose 178 H Calcium 8.3 L Total Bilirubin 0.6 AST 39 H ALT 49 Alkaline Phosphatase 65 Total Protein 5.8 L Albumin 3.0 L Globulin 2.8 Albumin/Globulin Ratio 1.1 Assessment & Plan Plan: Assessment/Plan Narrative: 1. Nausea and vomiting, resolved: Probably due to E coli septicemia from urinary source, with abnormal urinalysis with pyuria. Continue Levaquin and follow cultures.. Her nausea vomiting have resolved. She has not had any recurring nausea vomiting since hospital admission. Continue Zofran as needed. Right upper quadrant ultrasound did not reveal signs of cholelithiasis or cholecystitis. 2. E coli septicemia due to UTI. Positive blood culture noted for E coli, likely pathogenic. This is resistant to Levaquin plan to switch her to ceftriaxone. She has been on the ceftriaxone since September 30 3. Aspiration pneumonia: She was noted to be hypoxic and required 2 L of nasal cannula oxygen. She is now no longer requiring oxygen and she is taken off. Continue IV Levaquin for treating possible aspiration pneumonia. 4. Acute hypoxic respiratory failure: Improved. Possibly secondary to possible aspiration pneumonia. We will treat underlying cause. 5. Acute pulmonary edema: She was found to have crackles on bilateral lower lung roman. She was on oral furosemide prior to hospital admission. She still has some fluid overload will continue with IV Lasix for now hold her oral Lasix 6. Dysphagia: She is followed by speech pathologist. She is currently on dysphagia diet with pureed solid and nectar thick liquid. More awake today so hopefully should be able to eat better 7. Severe dementia: Patient is diminished in her mental status E, likely due to infection. 8. Metabolic encephalopathy, likely due to infection. Her somnolence has improved. CT of the scan scan of the head was unremarkable. She also has some elevated CO2 levels so some of the somnolence could be from hypercapnia. Her taking her off oxygen 9. Weakness due to septicemia. PT consulted. 10. Disposition: Discharge back to [facility] when medically stable. 11. Code status: Post form clarifies that she is DNR 12. Hypernatremia this could be causing her mental status changes. This has now resolved plan to place her back on half normal saline 13. Chronic hypercapnic respiratory failure CO2 retainer plan to skip her off oxygen and if she does need oxygen I would suggest BiPAP Quality VTE Deep Vein Thrombosis/Pulmonary Embolism Present on Admission: No
[2017-10-03 10:31] LABS: HCO3 ABG 39 mmol/L (23-27); Oxygen Saturation ABG 97 % (95-100); PCO2 ABG 50.3 mmHg (35-45); PO2 ABG 85 mmHg (80-105); TCO2 ABG 40 mmol/L (23-27)
--- NOTE | 2017-10-03 10:53 | PT.IIE ---
Current Diagnoses Pneumonitis due to inhalation of food and vomit (09/25/17) Medical History (Last Reviewed 10/02/17 @ 22:01 by Humera Rojas) Anxiety (Acute) COPD (chronic obstructive pulmonary disease) (Acute) Chronic bronchitis (Acute) Dysphagia (Acute) Hyperlipemia (Acute) Hypertension (Acute) Major depressive disorder, single episode (Acute) Morbid obesity due to excess calories (Acute) Osteoarthritis (Acute) Other abnormalities of gait and mobility (Acute) Paranoid schizophrenia (Acute) Physical Therapy Inpatient Evaluation/Re-Eval M1 PT/OT-IP Prior Functional Status Start: 09/29/17 13:03 Freq: NEEDED Status: Active Protocol: Document 10/03/17 10:35 AB (Rec: 10/03/17 10:51 AB [id number]) Medical Review Prior Functional Status Medical History Reviewed Yes Diet/Fluid Consistency Honey Thick Mobility and Gait Pt unable to give PLOF information. called [facility] last 09/30/17 to inquire about pt's level of assist: stated that pt is a 2 person max A pivot transfer using FWW. pt can stand long enough to transfer but not ambulate. pt needs 2 person assist with all mobility functions. Social History Household Members caregiver Living Arrangements Skilled Nurse Facility Home Environment Walk in Shower Home Equipment Four Wheel Walker Manual Wheelchair Employment Status Retired M2 PT-IP Current Condition Start: 09/29/17 13:03 Freq: NEEDED Status: Active Protocol: Document 10/03/17 10:35 AB (Rec: 10/03/17 10:51 AB [id number]) Physical Therapy Current Condition Current Condition Evaluation Date 10/03/17 Treatment Diagnosis aspiration pneumonia; generalized weakness Onset Date 09/25/17 M3 PT-IP Subjective Start: 09/29/17 13:03 Freq: NEEDED Status: Active Protocol: Document 10/03/17 10:35 [facility] (Rec: 10/03/17 10:51 AB [id number]) Subjective Physical Therapy Visit Type Type Initial Evaluation Visit Start Time 09:15 Visit Stop Time 09:53 Total Visit Minutes 43 Number of PROFESSOR OF BIOLOGICAL SCIENCES Visits 0 M4 PT-IP Mobility and Gait Start: 09/29/17 13:03 Freq: NEEDED Status: Active Protocol: Document 10/03/17 10:35 AB (Rec: 10/03/17 10:51 AB [id number]) PT-Bed Mobility Assessment Rolling Level of Assist Maximal Assistance 2 Person Assistance Supine to Sit Supine to Sit Total Assistance 2 Person Assistance Sit to Supine Sit to Supine Total Assistance 2 Person Assistance Scooting Scooting to Edge of Bed Dependent Scooting Up and Down in Bed Dependent PT-Transfer Assessment Comments Mobility Comments pt sat on EOB with max A to maintain sitting balance with LOB towards R and posteriorly. unable to consistently follow directions. Attempted sit to stand with 2 person assist but pt unable to complete. pt with c/o initial dizziness upon sitting on EOB. BP supine: 147/73 bp after tx supine: 153/79 PT-Balance Assessment Sitting Balance and Reactions Static Sitting Balance Ability Poor Dynamic Sitting Balance Ability Poor Standing Balance and Reactions Static Standing Balance Ability Poor Dynamic Standing Balance Ability Poor M5 PT-IP Objective Assessments Start: 09/29/17 13:03 Freq: NEEDED Status: Active Protocol: Document 10/03/17 10:35 [facility] (Rec: 10/03/17 10:51 AB [id number]) Orientation Orientation/Cognition Level of Alertness Confusional State Orientation Name Place Safety Awareness Decreased Safety Awareness Memory Description Short Term Impaired Intermediate Impaired Comments pt requires frequent cues to keep eyes open but able to stay awake to participate with therapy with cues/stimuli given. Gross Range of Motion Lower Extremity ROM Assessment Within Functional Limits Strength Lower Extremity Strength Assessment Bilaterally Impaired Comments Strength Comments RLE weaker than LLE M6 PT-IP Treatment Start: 09/29/17 13:03 Freq: NEEDED Status: Active Protocol: Document 10/03/17 10:52 AB (Rec: 10/03/17 10:52 AB [id number]) Physical Therapy Treatment Education Education Provided Safety Other Treatments Other Treatment Performed completed sitting balance/ tolerance on EOB requiring max A and max cues. pt tolerated ~ 5 min of sitting on EOB. M7 PT-IP Assessment and Plan Start: 09/29/17 13:03 Freq: NEEDED Status: Active Protocol: Document 10/03/17 10:35 AB (Rec: 10/03/17 10:51 AB [id number]) PT Summary Assessment and Plan Potential Rehabilitation Potential Fair Status of Condition at Evaluation Evolving Summary Impairments Pain ROM Strength Balance Coordination Sensation Tone Cognition Bed Mobility Transfers Gait Activity Tolerance Assessment Summary Pt require total A x 2 with mobility and max cues with all tasks. pt will require SNF rehab to improve function. Goals Bed Mobility Goal Moderate Assistance Transfer Goal Moderate Assistance Front Wheeled Walker Days to Meet Goals 3 Frequency of Treatment Frequency Of Treatment Twice a Day Treatment Plan Physical Therapy Treatment Plan Bed Mobility Training Transfer Training Therapeutic Exercise Balance Retraining Discharge Planning Neuromuscular Re-ed Coordination Retraining Manual Therapy Recommendations To Nursing Amount of Assist Needed 2 Person Assist Total Assistance Mechanical Lift Discharge Recommendations PT Discharge Recommendations SNF Rehab Provider Visit Care Team Role Provider Type Mary Baker MD Family Provider Physician Primary Care Provider Specialty: Medical Dalton Willis DO Emergency Provider Physician Specialty: Emergency Medicine Marques Geiger MD Admit Provider Physician Attending Provider Other Providers Specialty: Internal Medicine
[2017-10-03] MEDS: POLYVINYL ALCOHOL DROPS 1 DROPS EYE-BOTH ×2 (11:04→20:15)
[2017-10-03] MEDS: ENOXAPARIN 40 MG/0.4 ML SYRINGE SUBCUT (11:04)
[2017-10-03] MEDS: SODIUM CHLORIDE 0.9% FLUSH 10 ML IV (11:05)
[2017-10-03] MEDS: DEXTROSE 5%-0.45NS W/KCL 10MEQ 1,000 ML 84 MEQ IV (11:05)
[2017-10-03] MEDS: FUROSEMIDE 20 MG/2 ML VIAL IV ×2 (11:05→20:15)
[2017-10-03] MEDS: POTASSIUM CHLORIDE IN WATER 40 MEQ/400 ML PIGGYBACK 100 MEQ IV (11:05)
--- NOTE | 2017-10-03 12:22 | ST.IPTN ---
PRESIDENT [employer] [place] Treatment Note [employer] [place] [employer] [place] Treatment Note Start: 09/25/17 15:57 Freq: Status: Active Protocol: Document 10/03/17 12:08 [facility] (Rec: 10/03/17 12:22 [facility] [id number]) Speech Pathology Treatment Note Session Time Visit Start Time 11:00 Visit Stop Time 11:15 Total Visit Minutes 15 Setting Treatment Setting Acute Care Visit Type Note Type Treatment Note Next Note Type Next Note Type Treatment Note Subjective Identification Type Name ID Card Identification Reconciled With ID Phongceljose antonio Others Present Nursing Observations/Patient Presentation Patient resting in bed, but positioned upright. Able to rouse with verbal/tactile cues from PRESIDENT [place]. Able to verbally respond. Frequently fell asleep, but able to rouse with verbal/tactile cues. Stated that she was hungry and agreed to trials of huny thick water and puree applesauce. Continues to appear disoriented and confused, but compliant. Chief Complaint(s) Swallowing Rehab Expectation/Goals: Patient Goals Patient will medically improve in order to function at baseline Patient Knowledge/Awareness of PRESIDENT [place] Role Poor in Treatment Objective Short Term Goals Given min cues, patient will self-feed current diet of honey thick liquids, puree textures and implement safe swallow strategies such as small bites/sips and slow rate in order to increase functional independence. (Unable to self-feed; required tactile cues from [place] to close mouth to accept water/ applesauce from spoon; 10/03/17 ) Custodial Goals Patient will return to baseline level of function of self-feeding through medical improvement. (Slow improvement; continued to be below baseline; 10/03/17) Treatment Activities Oral trials were limited due to patient's difficulty in controlling PO intake and reduced oropharyngeal response to trials. Trials consisted of honey thick liquid via teaspoon and puree textures via teaspoon. Given patient's tardive dyskinesia and decreased alertness, her bolus acceptance continues to be significantly impaired. This session, she was able to accept a 1/4 tsp sip of honey thick water via spoon and 3 trials of 1/4 spoon size of puree appleasuce. The patient was dependent in all trials. She required ongoing cues to stay awake and remain alert to perform oral propulsion and pharyngeal swallow to clear trials. No cough observed with trial of honey thick water. No cough observed with the first two trials of puree applesauce, however, her swallow initiation time was ~ 25 seconds with max cues from [place] to swallow. Dry spoon was implemented to re-stimulate her swallow response. This was minimally successful. Patient did eventually swallow both trials of applesauce but then began to exhibit respiratory wheezing. [place] initiated one additional trial of puree applesauce after giving the patient a minute to rest. She was unable to propel this bolus to her pharynx successfully. As a result, diffuse oral residue was observed in her mouth, under her tongue and along the posterior surface of her tongue. Suction was implemented to clear this residue to prevent aspiration of bolus. Trials were discontinued due to the patient's significant delay in swallow response. Assessment Patient Response to Treatment Poor Rehab Potential Poor Impairments Identified Dementia Dysphagia Comment Minimal progress Assessment of Overall Progress Unchanged Assessment of Improvement Patient's tardive dyskinesia and decreased alertness continue to be her largest barriers to improvement of swallowing ability. Due to her reduced oral coordination and decreased alertness, she has significantly lost the ability to safely maintain adequate oral intake. She continues to demonstrate minimal alertness, which impacts her ability to safely participate in eating. When she is awake, she requires ongoing cues from staff to remain alert and swallow PO presented. At this time, she is at risk of not maintaining adequate nutrition and hydration orally. This will be discussed with Dr. Espinoza and a plan will be made for the best way to proceed. Plan Length of Session 15 Minutes Therapeutic Contents Compensatory Swallowing Training Swallowing/Feeding Comment Consult with Dr Espinoza regarding patient's status
--- NOTE | 2017-10-03 14:00 | PC.NURSE ---
day shift pt will wake up for short periods of time. answer a few questions then fall asleep. when asked if hungry, she states yes but then falls asleep immediately afterwards. FURNACE MECHANIC attempted to feed pt, note in chart. Turned q2hr. incontinent of urine, barrier cream applied. PIV went bad, removed. Notified DI RN to start new PIV. abx and K on hold until new PIV inserted.
--- NOTE | 2017-10-03 14:43 | SLP.IPNOTE ---
DIRECTOR CLIENT SERVICES spoke with Dr Espinoza regarding the patient's level of function and her poor ability to participate in skilled therapy with speech. Due to her overall status, she is not a candidate for additional speech therapy services at this time. DIRECTOR CLIENT SERVICES explained this to Dr Espinoza who agreed. At this time, speech therapy will D/C the patient. Please reconsult when patient is able to maintain adequate level of alertness to safely participate in PO trials and therapy. D/C patient.
--- NOTE | 2017-10-03 15:52 | PT.IPTN ---
Current Diagnoses Pneumonitis due to inhalation of food and vomit (09/25/17) Physical Therapy Treatment Note M2 PT-IP Current Condition Start: 09/29/17 13:03 Freq: NEEDED Status: Active Protocol: Document 10/03/17 10:35 AB (Rec: 10/03/17 10:51 AB [id number]) Physical Therapy Current Condition Current Condition Evaluation Date 10/03/17 Treatment Diagnosis aspiration pneumonia; generalized weakness Onset Date 09/25/17 M3 PT-IP Subjective Start: 09/29/17 13:03 Freq: NEEDED Status: Active Protocol: Document 10/03/17 15:46 AB (Rec: 10/03/17 15:52 AB [id number]) Subjective Physical Therapy Visit Type Type Treatment Note Visit Start Time 14:58 Visit Stop Time 15:25 Total Visit Minutes 27 Number of SIZE MIXER Visits 0 Therapy Pain Assessment Pain Present Pain Present Denied Pain M4 PT-IP Mobility and Gait Start: 09/29/17 13:03 Freq: NEEDED Status: Active Protocol: Document 10/03/17 15:46 AB (Rec: 10/03/17 15:52 AB [id number]) PT-Bed Mobility Assessment Supine to Sit Supine to Sit Total Assistance 2 Person Assistance Head of Bed Elevated Sit to Supine Sit to Supine Total Assistance 2 Person Assistance Scooting Scooting to Edge of Bed Dependent Scooting Up and Down in Bed Dependent PT-Transfer Assessment Comments Mobility Comments Pt sat on EOB requiring max A and max cues. completed sitting bal/hoang activities with pt requiring max A x 2 for steadiness and max cues. pt tolerated ~ 10 min of sitting on EOB. completed static sitting on EOB, trunk control activities with anterior/posterior and side to side movement. pt c/o nausea afterwards and was assited to supine. PT-Balance Assessment Sitting Balance and Reactions Static Sitting Balance Ability Poor Dynamic Sitting Balance Ability Poor M5 PT-IP Objective Assessments Start: 09/29/17 13:03 Freq: NEEDED Status: Active Protocol: Document 10/03/17 10:35 AB (Rec: 10/03/17 10:51 AB [id number]) Orientation Orientation/Cognition Level of Alertness Confusional State Orientation Name Place Safety Awareness Decreased Safety Awareness Memory Description Short Term Impaired Halfway Impaired Comments pt requires frequent cues to keep eyes open but able to stay awake to participate with therapy with cues/stimuli given. Gross Range of Motion Lower Extremity ROM Assessment Within Functional Limits Strength Lower Extremity Strength Assessment Bilaterally Impaired Comments Strength Comments RLE weaker than LLE M6 PT-IP Treatment Start: 09/29/17 13:03 Freq: NEEDED Status: Active Protocol: Document 10/03/17 10:52 AB (Rec: 10/03/17 10:52 AB [id number]) Physical Therapy Treatment Education Education Provided Safety Other Treatments Other Treatment Performed completed sitting balance/ tolerance on EOB requiring max A and max cues. pt tolerated ~ 5 min of sitting on EOB. M7 PT-IP Assessment and Plan Start: 09/29/17 13:03 Freq: NEEDED Status: Active Protocol: Document 10/03/17 15:46 AB (Rec: 10/03/17 15:52 AB [id number]) PT Summary Assessment and Plan Potential Rehabilitation Potential Fair Summary Impairments ROM Strength Balance Coordination Tone Cognition Bed Mobility Transfers Gait Activity Tolerance Progress Towards Goals Slow Progress due to Medical Issues Assessment Summary pt continues to require 2 person extensive assist with all tasks. pt will need SNF rehab. Goals Bed Mobility Goal Moderate Assistance Transfer Goal Moderate Assistance Front Wheeled Walker Days to Meet Goals 3 Frequency of Treatment Frequency Of Treatment Twice a Day Treatment Plan Physical Therapy Treatment Plan Bed Mobility Training Transfer Training Therapeutic Exercise Balance Retraining Discharge Planning Neuromuscular Re-ed Coordination Retraining Manual Therapy Recommendations To Nursing Amount of Assist Needed 2 Person Assist Total Assistance Mechanical Lift Discharge Recommendations PT Discharge Recommendations SNF Rehab
[2017-10-03] MEDS: CEFTRIAXONE 1 GM/50 ML FROZ.PIGGY IV (16:23)
--- NOTE | 2017-10-03 22:14 | PC.NURSE ---
Lorie Shift: At beginning of shift during patient care, patient began to aspirate, suction required, and staff was able to remove secretions from mouth. Pt continues to be lethargic, but easily aroused with verbal stimulation. Has wavered in mentation but is consistent with awareness of self. Did state she was in the hospital once but unable to verbalized date of . Frequent turns with incontinence care provided, coccyx is pink and intact, barrier cream along with off loading practiced. Skin folds showed moister but skin intact without redness. Pt is showing a Flacc of 0, and has reported no pain when asked. Midline placed to ROBIN from DI nurse due to frequent sticks and hard stick status. Per speech therapy patient is not a safe swallow and is unable to safely maintain adequate oral intake. No PO meds administered this shift.
[2017-10-04 01:00] VITALS: O2SAT 97
[2017-10-04] MEDS: NYSTATIN POWDER 15GM 1 APPLIC TOP ×4 (01:00→21:08)
[2017-10-04 06:31] VITALS: BP 125/65; PULSE 55; RESP 16; TEMP 36.7; O2SAT 93
[2017-10-04 06:38] LABS: Add Manual Diff / Slide Review NO; Basophils Percent Auto 0.4 % (0-2); Eosinophils Percent Auto 3.6 % (2-4); Hematocrit 39.2 % (36-46); Hemoglobin 13.3 g/dL (12.0-16.0); Lymphocytes Percent Auto 13.5 % (25-40); Mean Corpuscular Hemoglobin 27.4 PG (26-34); Mean Corpuscular Volume 80.6 fL (80-100); Monocytes Percent Auto 4.8 % (3-14); Neutrophils Absolute Auto 11900 /uL (3000-5900); Neutrophils Percent Auto 77.7 % (50-75); Platelet Count 244 X10^3/uL (150-400); Red Blood Cell Count 4.86 X10^6/uL (4.0-5.2); Red Cell Distribution Width 14.5 % (11.6-14.8); White Blood Cell Count 15.4 X10^3/uL (4.5-11.0)
[2017-10-04 06:44] LABS: BUN Creatinine Ratio 18.3 (6-22); Blood Urea Nitrogen 11 mg/dL (7-17); Calcium 8.2 mg/dL (8.4-10.2); Carbon Dioxide 36 mmol/L (22-32); Chloride 94 mmol/L (98-107); Estimated Glomerular Filt Rate > 60.0 mL/min (>60); Glucose 160 mg/dL (80-110); HEMOLYSIS < 15 (0-50); Potassium 3.2 mmol/L (3.4-5.1); Sodium 137 mmol/L (137-145)
--- NOTE | 2017-10-04 06:47 | PC.NURSE ---
Pt arouses to voice. turned q2. Pt tolerates well. Pt fluids running, tolerating well. pt changed, incontinent of urine. tolerated turning and changing well. Pt answers questions. skin is c/d/i, nystatin applied to groin and abdominal folds and underneath breasts for prophylactic measures. Pt bed alarm on, side rails up x3 will continue to monitor pt for safety
[2017-10-04] MEDS: DEXTROSE 5%-0.45NS W/KCL 10MEQ 1,000 ML 84 MEQ IV (07:35)
[2017-10-04 09:00] VITALS: BP 135/55; PULSE 67; RESP 18; TEMP 36.9; O2SAT 94
--- NOTE | 2017-10-04 09:45 | PT.IPTN ---
Current Diagnoses Pneumonitis due to inhalation of food and vomit (09/25/17) Physical Therapy Treatment Note M2 PT-IP Current Condition Start: 09/29/17 13:03 Freq: NEEDED Status: Active Protocol: Document 10/04/17 09:39 TMS (Rec: 10/04/17 09:45 TMS [id number]) Physical Therapy Current Condition Current Condition Evaluation Date 10/03/17 Treatment Diagnosis aspiration pneumonia; generalized weakness Onset Date 09/25/17 M3 PT-IP Subjective Start: 09/29/17 13:03 Freq: NEEDED Status: Active Protocol: Document 10/04/17 09:39 TMS (Rec: 10/04/17 09:45 TMS [id number]) Subjective Physical Therapy Visit Type Type Treatment Note Visit Start Time 09:05 Visit Stop Time 09:30 Total Visit Minutes 25 Number of ASSOCIATE PRODUCT INTEGRITY ENGINEER Visits 1 Physical Therapy Visit Comments Patient Comments Pt. stated she was hungry, thinks she slept well last night. Therapy Pain Assessment Pain Present Pain Present Denied Pain M4 PT-IP Mobility and Gait Start: 09/29/17 13:03 Freq: NEEDED Status: Active Protocol: Document 10/04/17 09:39 TMS (Rec: 10/04/17 09:45 TMS [id number]) PT-Bed Mobility Assessment Rolling Level of Assist Maximal Assistance 2 Person Assistance Supine to Sit Supine to Sit Total Assistance 2 Person Assistance Head of Bed Elevated Scooting Scooting to Edge of Bed Dependent PT-Transfer Assessment Comments Mobility Comments Pt. sat on EOB with CGA-Max-A, only able to sit unsupported for approximately 5 seconds before falling, generally posteriorly but also lost balance to left and right. Transferred sitting on EOB to chair with overhead lift with assist of 2. PT-Balance Assessment Sitting Balance and Reactions Static Sitting Balance Ability Poor Dynamic Sitting Balance Ability Poor M5 PT-IP Objective Assessments Start: 09/29/17 13:03 Freq: NEEDED Status: Active Protocol: Document 10/03/17 10:35 AB (Rec: 10/03/17 10:51 AB [id number]) Orientation Orientation/Cognition Level of Alertness Confusional State Orientation Name Place Safety Awareness Decreased Safety Awareness Memory Description Short Term Impaired Chain Mender Impaired Comments pt requires frequent cues to keep eyes open but able to stay awake to participate with therapy with cues/stimuli given. Gross Range of Motion Lower Extremity ROM Assessment Within Functional Limits Strength Lower Extremity Strength Assessment Bilaterally Impaired Comments Strength Comments RLE weaker than LLE M6 PT-IP Treatment Start: 09/29/17 13:03 Freq: NEEDED Status: Active Protocol: Document 10/03/17 10:52 AB (Rec: 10/03/17 10:52 AB [id number]) Physical Therapy Treatment Education Education Provided Safety Other Treatments Other Treatment Performed completed sitting balance/ tolerance on EOB requiring max A and max cues. pt tolerated ~ 5 min of sitting on EOB. M7 PT-IP Assessment and Plan Start: 09/29/17 13:03 Freq: NEEDED Status: Active Protocol: Document 10/04/17 09:39 TMS (Rec: 10/04/17 09:45 TMS [id number]) PT Summary Assessment and Plan Summary Impairments ROM Strength Balance Coordination Tone Cognition Bed Mobility Transfers Gait Activity Tolerance Progress Towards Goals Slow Progress due to Medical Issues Assessment Summary Pt. able to sit unsupported very briefly today, poor righting reactions when lost balance. Had difficulty keeping eyes open throughout treatment. AA ankle pumps. Frequency of Treatment Frequency Of Treatment Twice a Day Treatment Plan Physical Therapy Treatment Plan Bed Mobility Training Transfer Training Therapeutic Exercise Balance Retraining Discharge Planning Neuromuscular Re-ed Coordination Retraining Manual Therapy Recommendations To Nursing Amount of Assist Needed 2 Person Assist Total Assistance Mechanical Lift Discharge Recommendations PT Discharge Recommendations SNF Rehab
[2017-10-04] MEDS: LORATADINE 10 MG TABLET PO (11:25)
[2017-10-04] MEDS: ZIPRASIDONE 20 MG 1 EACH PO ×2 (11:25→18:06)
[2017-10-04] MEDS: POTASSIUM CHLORIDE 20 MEQ TAB PO (11:25)
[2017-10-04] MEDS: SERTRALINE 50 MG TABLET 150 MG PO (11:25)
[2017-10-04] MEDS: FUROSEMIDE 20 MG/2 ML VIAL IV (11:26)
[2017-10-04] MEDS: ENOXAPARIN 40 MG/0.4 ML SYRINGE SUBCUT (11:26)
[2017-10-04] MEDS: POLYVINYL ALCOHOL DROPS 1 DROPS EYE-BOTH ×3 (11:26→21:08)
--- NOTE | 2017-10-04 12:39 | P.PN_ITS ---
Subjective Date Patient Seen: 10/04/17 Time Patient Seen: 12:36 Interval history: She is sitting up in a chair today she has been much more awake since stopping the oxygen yesterday Exam Vital Signs (past 8 hours): Vital Signs - 8 hr 3 10/04/17 06:31 10/04/17 09:00 Temperature 98.1 F 98.5 F Pulse Rate 55 L 67 Respiratory Rate 16 18 Blood Pressure 125/65 H 135/55 H Pulse Oximetry 93 94 Pulse Oximetry 94 Fraction of Inspired Oxygen 32 Oxygen Delivery Method Room Air Oxygen Flow Rate 0 Narrative Exam Narrative: Sitting up in a chair she is awake she says that she is hungry. She still has. When she is sleeping however. Lungs are clear Heart regular rhythm Abdomen obese nontender Lower extremities with edema in the legs also up in the hands and arms Neuro exam she is more awake and she has confusion at baseline no other focal deficit Objective Labs Result Diagrams: 10/04/17 06:19 10/04/17 06:19 Labs: Laboratory Results - last 24 hr 10/04/17 10/04/17 06:19 06:19 WBC 15.4 H RBC 4.86 Hgb 13.3 Hct 39.2 MCV 80.6 MCH 27.4 MCHC 34.0 RDW 14.5 Plt Count 244 Neut % (Auto) 77.7 H Lymph % (Auto) 13.5 L [place] % (Auto) 4.8 Eos % (Auto) 3.6 Baso % (Auto) 0.4 Neut # (Auto) 20059 H Sodium 137 Potassium 3.2 L Chloride 94 L Carbon Dioxide 36 H BUN 11 Creatinine 0.60 Estimated GFR > 60.0 BUN/Creatinine Ratio 18.3 Glucose 160 H Calcium 8.2 L Assessment & Plan Plan: Assessment/Plan Narrative: 1. Nausea and vomiting, resolved: Probably due to E coli septicemia from urinary source, with abnormal urinalysis with pyuria. Continue Levaquin and follow cultures.. Her nausea vomiting have resolved. She has not had any recurring nausea vomiting since hospital admission. Continue Zofran as needed. Right upper quadrant ultrasound did not reveal signs of cholelithiasis or cholecystitis. 2. E coli septicemia due to UTI. Positive blood culture noted for E coli, likely pathogenic. This is resistant to Levaquin plan to switch her to ceftriaxone. She has been on the ceftriaxone since September 30. Plan to now switch her to oral 1st generation cephalosporin. Now that she is more awake. Plan to continue antibiotics for total of 7 days 3. Aspiration pneumonia: She was noted to be hypoxic and required 2 L of nasal cannula oxygen. She is now no longer requiring oxygen and she is taken off. She completed a course of Levaquin. 4. Acute hypoxic respiratory failure: Improved. Possibly secondary to possible aspiration pneumonia. We will treat underlying cause. 5. Acute pulmonary edema: She was found to have crackles on bilateral lower lung roman. She was on oral furosemide prior to hospital admission. Plan to resume her oral Lasix now that she is taking orally better. IV Lasix will be stopped 6. Dysphagia: She is followed by speech pathologist. She is currently on dysphagia diet with pureed solid and nectar thick liquid. More awake today so hopefully should be able to eat better 7. Severe dementia: Patient is diminished in her mental status E, likely due to infection. 8. Metabolic encephalopathy, likely due to infection. Her somnolence has improved. CT of the scan scan of the head was unremarkable. She is much more awake since taking her off the oxygen she was retaining CO2. 9. Weakness due to septicemia. PT consulted. 10. Disposition: Discharge back to [facility] when medically stable. 11. Code status: Post form clarifies that she is DNR 12. Hypernatremia this could be causing her mental status changes. This has now resolved plan to place her back on half normal saline 13. Chronic hypercapnic respiratory failure CO2 retainer plan to skip her off oxygen and if she does need oxygen I would suggest BiPAP Quality VTE Deep Vein Thrombosis/Pulmonary Embolism Present on Admission: No
[2017-10-04 12:44] VITALS: BP 113/57; PULSE 69; RESP 20; TEMP 36.4; O2SAT 93
--- NOTE | 2017-10-04 15:22 | PC.NURSE ---
day shift pt more alert today than yesterday. She was able to tolerate some PO intake Breakfast- 100 ml juice, 4 bites of eggs and 6 bites of applesauce Lunch- 2/3 mac and cheese, few bites of pudding, 100 ml ensure shake Denied pain. Up with roxanne lift to chair for most of day. She is incontinent. tolerated pills this AM, crushed in applesauce. She did not like the taste so needed encouragement to swallow but was able to without issue.
[2017-10-04] MEDS: cephALEXin 250 MG CAPSULE PO ×3 (15:24→21:08)
[2017-10-04] MEDS: FUROSEMIDE 40 MG TABLET PO (15:24)
[2017-10-04] MEDS: POTASSIUM CHLORIDE IN WATER 40 MEQ/400 ML PIGGYBACK 100 MEQ IV (15:24)
[2017-10-04 15:27] LABS: Magnesium 1.8 mg/dL (1.6-2.3)
[2017-10-04 16:00] VITALS: BP 113/54; PULSE 72; RESP 18; TEMP 36.2; O2SAT 93
--- NOTE | 2017-10-04 16:12 | PC.NURSE ---
Addendum entered by Makenna Shaffer R.N. 10/04/17 16:24: Patient sitting at edge of bed with PT for core/trunk exercises. Awake, pleasant and calm. Original Note: Lorie note: Patient awake and alert, sleeping between care, arouses to voice and light touch. Administered PO meds with adequate swallow, no cough or throat clearing noted. Responds to simple questions with one to three words sentences. Remain on RA, O2 sat 93%. Aspiration precautions maintained, BA active, turning and using pressure off loading interventions.
--- NOTE | 2017-10-04 17:04 | PT.IPTN ---
Current Diagnoses Pneumonitis due to inhalation of food and vomit (09/25/17) Physical Therapy Treatment Note M2 PT-IP Current Condition Start: 09/29/17 13:03 Freq: NEEDED Status: Active Protocol: Document 10/04/17 09:39 TMS (Rec: 10/04/17 09:45 TMS [id number]) Physical Therapy Current Condition Current Condition Evaluation Date 10/03/17 Treatment Diagnosis aspiration pneumonia; generalized weakness Onset Date 09/25/17 M3 PT-IP Subjective Start: 09/29/17 13:03 Freq: NEEDED Status: Active Protocol: Document 10/04/17 16:54 AB (Rec: 10/04/17 17:04 AB [id number]) Subjective Physical Therapy Visit Type Type Treatment Note Visit Start Time 16:18 Visit Stop Time 16:42 Total Visit Minutes 24 Number of MEAL COOK Visits 0 Therapy Pain Assessment Pain Present Pain Present Denied Pain M4 PT-IP Mobility and Gait Start: 09/29/17 13:03 Freq: NEEDED Status: Active Protocol: Document 10/04/17 16:54 AB (Rec: 10/04/17 17:04 AB [id number]) PT-Bed Mobility Assessment Supine to Sit Supine to Sit Total Assistance 1 Person Assistance 2 Person Assistance Sit to Supine Sit to Supine Total Assistance 1 Person Assistance 2 Person Assistance Scooting Scooting to Edge of Bed Dependent Scooting Up and Down in Bed Dependent PT-Transfer Assessment Comments Mobility Comments pt sat on EOB requiring max A to maintain sitting balance. pt instructed for upright posture and for steadiness but pt unable to correct and unable to assist to keep self from falling posteriorly and laterally. pt tolerated ~ 8 min of sitting on EOB. instructed to lift LLE up straight and pt able to complete mcc up but unable to repeat activity when instructed again. positioned pt back in bed. call light and table placed within reach. PT-Balance Assessment Sitting Balance and Reactions Static Sitting Balance Ability Poor Dynamic Sitting Balance Ability Poor M5 PT-IP Objective Assessments Start: 09/29/17 13:03 Freq: NEEDED Status: Active Protocol: Document 10/03/17 10:35 AB (Rec: 10/03/17 10:51 AB [id number]) Orientation Orientation/Cognition Level of Alertness Confusional State Orientation Name Place Safety Awareness Decreased Safety Awareness Memory Description Short Term Impaired Brake Repairer Impaired Comments pt requires frequent cues to keep eyes open but able to stay awake to participate with therapy with cues/stimuli given. Gross Range of Motion Lower Extremity ROM Assessment Within Functional Limits Strength Lower Extremity Strength Assessment Bilaterally Impaired Comments Strength Comments RLE weaker than LLE M6 PT-IP Treatment Start: 09/29/17 13:03 Freq: NEEDED Status: Active Protocol: Document 10/04/17 17:04 AB (Rec: 10/04/17 17:04 AB [id number]) Physical Therapy Treatment Exercises Exercises Heel Slides Other Treatments Other Treatment Performed AAROM heel slides conducted with max cues M7 PT-IP Assessment and Plan Start: 09/29/17 13:03 Freq: NEEDED Status: Active Protocol: Document 10/04/17 16:54 AB (Rec: 10/04/17 17:04 AB [id number]) PT Summary Assessment and Plan Potential Rehabilitation Potential Fair Summary Impairments Pain ROM Strength Balance Coordination Sensation Tone Cognition Bed Mobility Transfers Gait Activity Tolerance Progress Towards Goals Slow Progress due to Medical Issues Assessment Summary pt continues to require 2 person extensive assist with all mobilities. Tx frequency changed to once daily from BID . Pt has decrease cognitive level affecting instruction following and not making much progress. will continue to assess pt's status. Goals Bed Mobility Goal Moderate Assistance Transfer Goal Moderate Assistance Front Wheeled Walker Days to Meet Goals 3 Frequency of Treatment Frequency Of Treatment Once a Day Treatment Plan Physical Therapy Treatment Plan Bed Mobility Training Transfer Training Therapeutic Exercise Balance Retraining Discharge Planning Neuromuscular Re-ed Coordination Retraining Manual Therapy Recommendations To Nursing Amount of Assist Needed 2 Person Assist Total Assistance Mechanical Lift Discharge Recommendations PT Discharge Recommendations SNF Rehab
[2017-10-04] MEDS: SIMVASTATIN 10 MG TABLET PO (18:06)
[2017-10-04 20:00] VITALS: BP 103/55; PULSE 65; RESP 16; TEMP 36.1; O2SAT 92
--- NOTE | 2017-10-04 21:05 | PC.NURSE ---
Addendum entered by Makenna Shaffer R.N. 10/04/17 22:18: Large void, very saturated brief change. Patient does not appear uncomfortable. Original Note: Last void at 1520, dry brief check at 2100, Bladder scan with 876 ml, Dr. Alexis lucas, awaiting for call back.
[2017-10-04] MEDS: SODIUM CHLORIDE 0.9% FLUSH 10 ML IV (21:12)
[2017-10-05 00:16] VITALS: BP 105/58; PULSE 65; RESP 16; TEMP 36.6; O2SAT 93
[2017-10-05] MEDS: SODIUM CHLORIDE 0.9% FLUSH 10 ML IV ×2 (00:32→08:54)
[2017-10-05 00:35] VITALS: O2SAT 97
[2017-10-05] MEDS: NYSTATIN POWDER 15GM 1 APPLIC TOP ×2 (00:37→05:51)
[2017-10-05 02:01] VITALS: RESP 20
[2017-10-05 04:16] VITALS: RESP 20
--- NOTE | 2017-10-05 05:01 | PC.NURSE ---
Barrel Rifler Broach- Pt slept well throughout shift, awoke during movement/repositioning in bed. Lethargic, nothing given by mouth during night. Inc large amount of urine in brief at 0050, brief checked at 0315 and was dry, no BM, no flatus heard. ROBIN midline was hard to flush at first, then flushed with 20mls NS and locked. O2 sat 97% on RA, AE diminished throughout lung roman. Calf SCD's to BLE. High fall risk precautions in place.
[2017-10-05 06:40] VITALS: BP 112/56; PULSE 60; RESP 16; TEMP 36.6; O2SAT 94
[2017-10-05 08:00] VITALS: BP 128/61; PULSE 62; RESP 14; TEMP 36.3; O2SAT 94
[2017-10-05] MEDS: ENOXAPARIN 40 MG/0.4 ML SYRINGE SUBCUT (08:52)
--- NOTE | 2017-10-05 09:12 | PC.NURSE ---
Day shift: Pt wakes to her name. She remains somnolent. When asked if she would take her morning meds she clearly said no. She is only able to keep her eyes open for minutes at a time this AM. Has been clam and cooperative. Call light in reach. RA 95%. Remains 1 on 1 feeder when safe to do so. Incontinent of B&B. She did not want her breakfast this AM as well. Will continue to monitor. If and when she is more awake meds and food to be given.
--- NOTE | 2017-10-05 11:32 | PM.DS.1 ---
History of Present Illness Chief complaint: Aspiration Pneumonia/ Nausea, Vomiting/ Sepsis Narrative: 76-year-old female with dementia who was brought from half-way facility to [facility] Emergency room yesterday for hypoxia after nausea and vomiting. Patient is a poor historian and is unable to provide much history. Based on the ER documentation, she had multiple episodes of nausea and vomiting since 10 o'clock the evening prior. She was found to be hypoxic required 2 L nasal cannula oxygen. She received symptomatic control with nausea vomiting. She has not had any recurrent vomiting since hospital admission. There was documentation of abdominal pain on the ER note. Patient denies ongoing abdominal pain. Discharge Providers Date of admission: 09/25/17 05:33 Primary care physician: Mary Baker MD Consults: 09/25/17 05:17 Consult to Physician Routine Comment: Consulting Provider: Maqrues Geiger Reason for consultation: Admission Has provider been notified: Yes 09/25/17 06:57 Consult to Dietitian, Adult Routine Comment: Reason For Exam: Honey thick dysphagia diet 09/25/17 07:26 Consult to Dietitian, Adult Routine Comment: Reason For Exam: as previous 09/25/17 11:36 Consult to Speech Therapy Evaluate & Treat Comment: eval for swallowing Physician Instructions: Evaluate and treat 09/26/17 06:28 Consult to Dietitian, Adult Routine Comment: Reason For Exam: Aspiration Risk 09/28/17 17:28 Consult to Dietitian, Adult Routine Comment: Reason For Exam: assessed at high risk 09/29/17 12:44 Consult to Physical Therapy Evaluate & Treat Comment: weakness Physician Instructions: Evaluate and Treat Discharge provider: Subha Norwood MD Discharge Date: 10/05/17 Summary Discharge Diagnosis: One. Nausea and vomiting, possibly due to E coli septicemia from urinary source 2. E coli septicemia due to urinary tract infection 3. Aspiration pneumonia 4. Acute hypoxic respiratory failure secondary to aspiration pneumonia Five. Acute pulmonary edema 6. Dysphagia 7. Severe dementia 8. Metabolic encephalopathy, likely due to infection 9. Weakness due to septicemia 10. Hypernatremia 11. Hypokalemia 11. Chronic hypercapnic respiratory failure with CO2 retention 12. Code status: Do not resuscitate Hospital Course: 1. Nausea and vomiting, resolved: Probably due to E coli septicemia from urinary source, with abnormal urinalysis with pyuria. She was treated for the underlying cough. Her nausea vomiting have resolved. She has not had any recurring nausea vomiting since hospital admission. Continue Zofran as needed. Right upper quadrant ultrasound did not reveal signs of cholelithiasis or cholecystitis. 2. E coli septicemia due to UTI. Positive blood culture noted for E coli, likely pathogenic. She was initially treated with IV Levaquin. Antibiotics was switched to ceftriaxone on September 30, 2017. She is going to be switched to oral antibiotics at the time of discharge. Planning to treat her for total of 10 days. 3. Aspiration pneumonia: She was noted to be hypoxic and required 2 L of nasal cannula oxygen. She was initially treated with IV Levaquin. Antibiotics was subsequently switched to ceftriaxone. She is now no longer requiring oxygen and she is taken off. She completed a course of Levaquin. 4. Acute hypoxic respiratory failure: Improved. Possibly secondary to possible aspiration pneumonia. We will treat underlying cause. 5. Acute pulmonary edema: She was found to have crackles on bilateral lower lung roman. She was on oral furosemide prior to hospital admission. Her abuse furosemide was on hold for the 1st few days after hospital admission due to septicemia and acute infection. She was treated with IV furosemide and was subsequently transitioned to oral furosemide per outpatient dosing. 6. Dysphagia: She is followed by speech pathologist. She is currently on dysphagia diet with pureed solid and nectar thick liquid. 7. Severe dementia: Patient is diminished in her mental status E, likely due to infection. 8. Metabolic encephalopathy, likely due to infection. Her somnolence has improved. CT of the scan scan of the head was unremarkable. She is much more awake since taking her off the oxygen she was retaining CO2. 9. Weakness due to septicemia. PT consulted. 10. Hypernatremia, secondary to free water deficit. This could be contribute to her mental status changes. He was treated with half normal saline IV. Her sodium has returned to normal. 11. Chronic hypercapnic respiratory failure CO2 retainer: She had some improvement of her mental status after she was taken off nasal cannula oxygen. 12. Hypokalemia: Likely secondary to diuresis. She was treated with oral potassium replacement. Status at Discharge Cognitive/behavioral status at discharge: Still seems to be drowsy and lethargic Functional status at discharge: wheelchair bound Overall status at discharge: patient is progressing back to baseline Time Spent with Patient Greater than 30 minutes Exam Vital Signs (past 8 hours): Vital Signs - 8 hr 10/05/17 04:16 10/05/17 06:40 10/05/17 08:00 Temperature 97.8 F 97.4 F L Pulse Rate 60 62 Respiratory Rate 20 16 14 Blood Pressure 112/56 L 128/61 H Pulse Oximetry 94 94 Pulse Oximetry 94 Fraction of Inspired Oxygen 32 Oxygen Delivery Method Room Air Oxygen Flow Rate 0 Narrative Exam Narrative: General: Elderly woman who was most artery Lungs are clear Heart regular rhythm Abdomen obese nontender Lower extremities with edema in the legs also up in the hands and arms Neuro exam she is more awake and she has confusion at baseline no other focal deficit Objective Imaging CT scan - head: Radiologist's impression: No acute intracranial process is seen. Stable left lateral forehead subcutaneous soft tissue thickening. Labs Result Diagrams: 10/04/17 06:19 10/04/17 06:19 Labs: Laboratory Results - last 24 hr 10/04/17 14:28 Magnesium 1.8 Discharge Plan Discharge Plan Discharge Problem: Aspiration pneumonia, Nausea & vomiting, Sepsis, COPD (chronic obstructive pulmonary disease), Hypoxia Patient Disposition: SNF Transfer to: [facility] Under care of provider: Dr. Baker Transportation: Wheelchair Labs: chem 7 in one week Consult as needed: Dental, Hearing, Mental health, Podiatry and Vision Discharge comment: PT/OT/ speech eval and treat I certify the postop hospital half-way care is medically necessary on a continuing basis for any conditions for which he/ she received care during this hospitalization.: Yes The receiving facility has agreed to accept transfer and provide medical treatment.: Yes Discharge Health Status Multidrug resistant organism: No MDRO MDRO Verified by culture: Yes Date verified: 10/05/17 Precautions: [place] Provider Discharge Instructions Diet: Diet as Tolerated Liquid consistency: [place] Consistency Food texture: Blenderized or pureed Activity: UP WITH ASSISTANCE Oxygen: NC oxygen as needed to keep O2sat >90? Discharge Data Primary Care Provider: Mary Baker Attending Provider: Marques Geiger Admit Date/Time: 09/25/17 05:33 Quality VTE Deep Vein Thrombosis/Pulmonary Embolism Present on Admission: No
--- NOTE | 2017-10-05 11:53 | PC.NURSE ---
Day shift: Pt's brief changed by this abstract writer and FLORINDA Lucero. Barrier cream applied as well. Small red area (quarter sized) left upper cheek is blanchable. She tolerated the turns. She did open her eyes at times but remains somnolent. Call light in reach. Heals floated as well. Mouth moisturizer applied. HOB at 20 degrees.
--- NOTE | 2017-10-05 12:53 | PC.NURSE ---
Day shift: Dr Norwood made aware that Pt did not take any of her PO meds today.
--- NOTE | 2017-10-05 13:20 | CM.DPNOTE ---
DC Note: This ENGINEERING PROGRAM ANALYST following pt's DCP since yesterday; familiar w/pt from work done in the beginning of pt's admission. Dr Norwood eager to DC pt to [facility] today and Alexa, covering for Marilee/Humera, familiar w/pt and accepts pt's transfer today. TC placed to pt's guardian Colleen Tamez, updated on DCP. This ENGINEERING PROGRAM ANALYST expressed some concern about pt's significant decline, in comparison to her baseline, and encouraged Colleen to continue the conversation about ongoing treatment vs comfort path management. Colleen very understanding and agrees pt's stated wishes need to be followed (DNR, Limited Interventions,No tube feedings). Updated Colleen that pt continues to be very lethargic and does not wake up for very long for any po intake, including meds. Pt is a significant aspiration risk. Currently requiring a roxanne lift for transferring. IMM reviewed and verbal agreement obtained from Colleen. Colleen agreeable to DCP. [facility] p/u arranged for 1330, this ENGINEERING PROGRAM ANALYST faxed signed PASSR, signed med list, DC summary and H+P to [facility]. RN aware and agreeable to p/u time. Danika Bullard, ENGINEERING PROGRAM ANALYST
--- NOTE | 2017-10-05 13:59 | PC.NURSE ---
Day shift: Report given to [facility] RN. Pt is now in WC via Geri lift. SHe is awake now and has been interacting with the staff and this telegraphic typewriter repairer. [facility] personell here now and taking her across street to [facility]. D/c packet with them as well as [facility] form copy.
[2017-10-07 18:15] LABS: Fractionated Inspired Oxygen 24
== END 2017-10-05 14:01 | DRG 177 ==
LOC: ED 05:28 → ICU 07:24 → AC 09-30 16:19
PROVIDERS: Internal Medicine; Admitting Provider Internal Medicine; Emergency Provider Emergency Medicine; Family Provider Internal Medicine; PCP Internal Medicine; Visit Provider Internal Medicine
DX: J69.0 Pneumonitis due to inhalation of food and vomit (principal); J96.01 Acute respiratory failure with hypoxia; J81.0 Acute pulmonary edema; G93.41 Metabolic encephalopathy; F20.0 Paranoid schizophrenia; N39.0 Urinary tract infection, site not specified; E87.0 Hyperosmolality and hypernatremia; A08.4 Viral intestinal infection, unspecified; F03.90 Unspecified dementia, unspecified severity, without behavioral disturbance, psychotic disturbance, mood disturbance, and anxiety; J44.9 Chronic obstructive pulmonary disease, unspecified; R13.10 Dysphagia, unspecified; E78.5 Hyperlipidemia, unspecified; I10 Essential (primary) hypertension; E66.9 Obesity, unspecified; Z68.32 Body mass index [BMI] 32.0-32.9, adult; B96.20 Unspecified Escherichia coli [E. coli] as the cause of diseases classified elsewhere
CPT/HCPCS: 36415; 36591; 36600; 70450; 71045; 76700; 80048; 80053; 80076; 81001; 82247; 82805; 83605; 83690; 83735; 83880; 84075; 84450; 84460; 85025; 87040; 87077; 87086; 87150; 87186; 87205; 87797; 92526; 92610; 94618; 94760; 96361; 96365; 96375; 97162; 97530; 99283; 99284; J1642; J1650; J1940; J1956; J2405